=== PATIENT | male | born 1970 | race Caucasian/White ===

== ENCOUNTER 2020-12-28 19:52 | Emergency (ER) | payer BC, OTHER ==
[2020-12-28 21:10] LABS: Absolute Lymphocytes (CBC) 2.5 K/uL (0.7-4.9); Basophils % 0.6 % (0-1.3); Lymphocytes % 30.8 % (15.3-44.8); MPV 7.8 fL (7.6-11.3); RBC Red Blood Cell Count 4.58 M/uL (4.33-5.43)
[2020-12-28] MEDS ORDERED: NA CHLORIDE 0.9% 1,000 ML ONE (21:22)
[2020-12-28 21:24] LABS: Magnesium 2.2 mg/dL (1.8-2.4); Potassium 3.8 mmol/L (3.5-5.1)
--- NOTE | 2020-12-28 21:40 | RAD REPORT ---
EXAM DESCRIPTION: CT - Head Brain Wo Cont - 12/28/2020 9:28 pm CLINICAL HISTORY: DIZZINESS Headache, drowsiness COMPARISON: No comparisons TECHNIQUE: All CT scans are performed using dose optimization technique as appropriate and may inclu de automated exposure control or mA/KV adjustment according to patient size. FINDINGS: No intracranial hemorrhage, hydrocephalus or extra-axial fluid collection.No areas of brai n edema or evidence of midline shift. The paranasal sinuses and mastoids are clear. The calvarium is intact. IMPRESSION: No acute intracranial abnormality.
--- NOTE | 2020-12-28 22:31 | ER ---
Nurse's Notes [facility] Name: Laurent Duffy Age: 50 yrs Sex: Male : 1970 Arrival Date: 12/28/2020 Time: 19:56 Bed 17 Private MD: Diagnosis: Headache;Dizziness and giddiness Presentation: 12/28 20:21 Chief complaint: Patient states: Pt states dizziness after work today and H/A. df1 Coronavirus screen: Vaccine status: Patient reports receiving the 2nd dose of the covid vaccine. Client reports previous positive COVID test result. Date of collection: January 2020. Ebola Screen: Patient negative for fever greater than or equal to 101.5 degrees Fahrenheit, and additional compatible Ebola Virus Disease symptoms Patient denies exposure to infectious person. Patient denies travel to an Ebola-affected area in the 21 days before illness onset. Initial Sepsis Screen: Does the patient meet any 2 criteria? No. Patient's initial sepsis screen is negative. Does the patient have a suspected source of infection? No. Patient's initial sepsis screen is negative. Risk Assessment: Do you want to hurt yourself or someone else? Patient reports no desire to harm self or others. Onset of symptoms was December 28, 2020 at 16:00. 20:21 Method Of Arrival: Ambulatory df1 20:21 Acuity: ZACKARY 3 df1 20:25 Note Pt states h/a and dizziness at 1600 today. H/O afib and wanted to be evaluated. df1 Triage Assessment: 21:08 Headache History: The patient has had previous headaches and this one is similar to sj1 previous episodes. General: Appears in no apparent distress. Pain: Pain currently is 6 out of 10 on a pain scale. at worst was 10 out of 10 on a pain scale. Pain began gradually, Also complains of. Historical: - Allergies: 20:23 No Known Allergies; df1 - Home Meds: 20:23 Xarelto Oral once daily [Active]; losartan po daily [Active]; metoprolol po daily df1 [Active]; - PMHx: 20:23 Atrial Fib; Hypertension; df1 - PSHx: 20:23 cardiac ablation; df1 - Immunization history:: Adult Immunizations up to date, Client reports receiving the 2nd dose of the Covid vaccine. - Social history:: Smoking status: Patient denies any tobacco usage or history of. - Family history:: not pertinent. - Hospitalizations: : No recent hospitalization is reported. Screenin:07 Abuse screen: Denies threats or abuse. Denies injuries from another. Nutritional sj1 screening: No deficits noted. Tuberculosis screening: No symptoms or risk factors identified. Fall Risk None identified. Assessment: 20:32 General: Appears in no apparent distress. Behavior is calm, cooperative, appropriate sj1 for age. Pain: Complains of pain in headache Pain does not radiate. Neuro: Reports dizziness, headache. 21:07 Neuro:. Cardiovascular: No deficits noted. Rhythm is sinus rhythm. Respiratory: No sj1 deficits noted. GI: No deficits noted. : No deficits noted. EENT: No deficits noted. Derm: No deficits noted. Musculoskeletal: No deficits noted. Vital Signs: 20:21 BP 130 / 76; Pulse 94; Resp 20; Temp 98.5; Pulse Ox 98% on R/A; Weight 229.97 kg; df1 Height 6 ft. 1 in. (185.42 cm); Pain 6/10; 20:58 BP 136 / 91 RA Supine (auto/lg); Pulse 93; sj1 21:04 BP 137 / 82 RA Sitting (auto/lg); Pulse 94; sj1 21:04 BP 118 / 67 RA Standing (auto/lg); Pulse 105; sj1 22:38 BP 120 / 72; Pulse 92; Resp 18 S; Temp 98.6; Pulse Ox 95% on R/A; Pain 0/10; sj1 20:21 Body Mass Index 66.89 (229.97 kg, 185.42 cm) df1 Combes Coma Score: 22:23 Eye Response: spontaneous(4). Verbal Response: oriented(5). Motor Response: obeys rn commands(6). Total: 15. ED Course: 19:56 Patient arrived in ED. wm 20:23 Triage completed. df1 20:31 Ag Davis MD is Attending Physician. rn 20:54 Magnesium Sent. sj1 20:54 CT Head Brain wo Cont Sent. sj1 21:07 No provider procedures requiring assistance completed. Inserted saline lock: 18 gauge sj1 in right antecubital area, using aseptic technique. Blood collected. 21:07 Patient has correct armband on for positive identification. Bed in low position. Call sj1 light in reach. Side rails up X 1. 21:08 Arm band placed on right wrist. sj1 21:28 CT Head Brain wo Cont In Process Unspecified. EDMS 22:38 IV discontinued, intact, bleeding controlled, No redness/swelling at site. sj1 Administered Medications: 20:57 Drug: NS 0.9% 1000 ml Route: IV; Rate: 1000 ml; Site: right antecubital; sj1 22:37 Follow up: IV Status: Completed infusion; IV Intake: 1000ml sj1 Intake: 22:37 IV: 1000ml; Total: 1000ml. sj1 Outcome: 22:30 Discharge ordered by . rn 22:37 Discharged to home ambulatory. sj1 22:37 Condition: stable 22:37 Discharge instructions given to patient, Instructed on discharge instructions, follow up and referral plans. Demonstrated understanding of instructions, follow-up care. 22:39 Patient left the ED. sj1 Signatures: Dispatcher [employer] EDMS Ag Davis MD MD rn Marsh, Wendy wm Furlich, Dawn df1 Hannah Mancera RN RN sj1
--- NOTE | 2020-12-28 22:31 | EDPHYS ---
Physician Documentation [facility] Name: Laurent Duffy Age: 50 yrs Sex: Male : 1970 Arrival Date: 12/28/2020 Time: 19:56 Bed 17 Private MD: ED Physician Ag Davis HPI: 12/28 22:23 This 50 yrs old Male presents to ER via Ambulatory with complaints of rn Headache - MAKES HIM DIZZY. 22:23 The patient complains of pain to the top of head and forehead. The patient describes rn the headache as aching. Onset: The symptoms/episode began/occurred today. Associated signs and symptoms: Pertinent positives: dizziness, Pertinent negatives: fever, nausea, neck stiffness, paresthesias, rash, vision changes, vision loss, vomiting, weakness, vertigo. Severity of symptoms: At its worst the pain was very mild, in the emergency department the pain is unchanged. Headache History: Denies prior headaches. The symptoms are alleviated by nothing. the symptoms are aggravated by Changing position. The patient has not experienced similar symptoms in the past. The patient has not recently seen a physician. 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 Patient denies any head injury. No other focal neurological symptoms. Denies any chest pain/vomiting/diarrhea. Denies abdominal pain. Reports history of A. fib status post ablation and has had no issues since then. Came in to make sure he was not in A. fib again. Denies any medication changes. No blood in stool.. Historical: - Allergies: 20:23 No Known Allergies; df1 - Home Meds: 20:23 Xarelto Oral once daily [Active]; losartan po daily [Active]; metoprolol po daily df1 [Active]; - PMHx: 20:23 Atrial Fib; Hypertension; df1 - PSHx: 20:23 cardiac ablation; df1 - Immunization history:: Adult Immunizations up to date, Client reports receiving the 2nd dose of the Covid vaccine. - Social history:: Smoking status: Patient denies any tobacco usage or history of. - Family history:: not pertinent. - Hospitalizations: : No recent hospitalization is reported. ROS: 22:23 Constitutional: Negative for fever, chills, and weight loss, Eyes: Negative for injury, rn pain, redness, and discharge, ENT: Negative for injury, pain, and discharge, Neck: Negative for injury, pain, and swelling, Cardiovascular: Negative for chest pain, palpitations, and edema, Respiratory: Negative for shortness of breath, cough, wheezing, and pleuritic chest pain, Abdomen/GI: Negative for abdominal pain, nausea, vomiting, diarrhea, and constipation, Back: Negative for injury and pain, : Negative for injury, bleeding, discharge, and swelling, MS/Extremity: Negative for injury and deformity, Skin: Negative for injury, rash, and discoloration, Neuro: Negative for weakness, numbness, tingling, and seizure. Exam: 22:23 Constitutional: Overweight male, sitting up on edge of bed, no acute distress rn Head/Face: Normocephalic, atraumatic. Eyes: Pupils equal round and reactive to light, extra-ocular motions intact. Lids and lashes normal. Conjunctiva and sclera are non-icteric and not injected. Cornea within normal limits. Periorbital areas with no swelling, redness, or edema. ENT: Dry mucous membranes Cardiovascular: Regular rate and rhythm. No pulse deficits. Respiratory: No increased work of breathing, no retractions or nasal flaring. Skin: Warm, dry MS/ Extremity: Pulses equal, no cyanosis. Neurovascular intact. Full, normal range of motion. Equal circumference. Neuro: Awake and alert, GCS 15, oriented to person, place, time, and situation. Cranial nerves II-XII grossly intact. Motor strength 5/5 in all extremities. Sensory grossly intact. Cerebellar exam normal. Normal gait. 22:23 ECG was reviewed by the Attending Physician. rn Vital Signs: 20:21 BP 130 / 76; Pulse 94; Resp 20; Temp 98.5; Pulse Ox 98% on R/A; Weight 229.97 kg; df1 Height 6 ft. 1 in. (185.42 cm); Pain 6/10; 20:58 BP 136 / 91 RA Supine (auto/lg); Pulse 93; sj1 21:04 BP 137 / 82 RA Sitting (auto/lg); Pulse 94; sj1 21:04 BP 118 / 67 RA Standing (auto/lg); Pulse 105; sj1 22:38 BP 120 / 72; Pulse 92; Resp 18 S; Temp 98.6; Pulse Ox 95% on R/A; Pain 0/10; sj1 20:21 Body Mass Index 66.89 (229.97 kg, 185.42 cm) df1 Lucho Coma Score: 22:23 Eye Response: spontaneous(4). Verbal Response: oriented(5). Motor Response: obeys rn commands(6). Total: 15. MDM: 20:31 Patient medically screened. rn 22:23 Differential diagnosis: hypertensive headache, migraine, tension headache, vasomotor rn headache, Dehydration, anemia, atrial fibrillation, arrhythmia. Data reviewed: vital signs, nurses notes, lab test result(s), EKG, radiologic studies, CT scan, and as a result, I will discharge patient. Data interpreted: monitoring specialist: rate is 90 beats/min, rhythm is normal sinus rhythm, regular, with no ectopy, Interpretation: normal rate, normal rhythm, Pulse oximetry: on room air is 98 %. Interpretation: normal. Counseling: I had a detailed discussion with the patient and/or guardian regarding: the historical points, exam findings, and any diagnostic results supporting the discharge/admit diagnosis, lab results, radiology results, the need for outpatient follow up, to return to the emergency department if symptoms worsen or persist or if there are any questions or concerns that arise at home. Response to treatment: the patient's symptoms have mildly improved after treatment, and as a result, I will discharge patient. Special discussion: I discussed with the patient/guardian in detail that at this point there is no indication for admission to the hospital. It is understood, however, that if the symptoms persist or worsen the patient needs to return immediately for re-evaluation. 12/28 20:41 Order name: CBC with Diff; Complete Time: :32 rn 12/28 20:41 Order name: Basic Metabolic Panel; Complete Time: : rn 12/28 20:41 Order name: CT Head Brain wo Cont; Complete Time: 22:12 rn 12/28 20:41 Order name: EKG; Complete Time: 20:41 rn 12/28 20:41 Order name: Magnesium; Complete Time: :32 rn 12/28 20:41 Order name: IV Start; Complete Time: 20:54 rn 12/28 20:41 Order name: EKG - Nurse/Tech; Complete Time: 20:54 rn 12/28 20:41 Order name: Orthostatic Blood Pressure; Complete Time: 21:09 rn 12/28 20:41 Order name: Cardiac monitoring; Complete Time: 54 rn 12/28 20:41 Order name: O2 Sat Monitoring; Complete Time: : rn EC:23 Rate is 91 beats/min. Rhythm is regular. QRS [place] is Normal. MT interval is normal. QRS rn interval is normal. QT interval is normal. No Q waves. T waves are Normal. No ST changes noted. Clinical impression: NSR w/ Non-specific ST/T Changes. Interpreted by me. Reviewed by me. Administered Medications: 20:57 Drug: NS 0.9% 1000 ml Route: IV; Rate: 1000 ml; Site: right antecubital; sj1 22:37 Follow up: IV Status: Completed infusion; IV Intake: 1000ml [facility] Disposition Summary: 12/28/20 22:30 Discharge Ordered Location: Home rn Problem: new rn Symptoms: have improved rn Condition: Stable rn Diagnosis - Headache rn - Dizziness and giddiness rn Followup: rn - With: Private Physician - When: As needed - Reason: Recheck today's complaints, Re-evaluation by your physician Discharge Instructions: - Discharge Summary Sheet rn - Dizziness rn - General Headache Without Cause rn Forms: - Medication Reconciliation Form rn - Thank You Letter rn - Antibiotic care nurse rn - Prescription Opioid Use rn Signatures: Dispatcher [employer] Ag Carlos MD MD rn Furlich, Dawn df1 Hannah Mancera RN RN sj1
[2020-12-28 22:48] VITALS: BP 120/72; TEMP 98.6; O2SAT 95
== END 2020-12-28 22:39 | disposition home or self-care (01) ==
LOC: ER 19:52
DX: R51.9 Headache, unspecified (principal); I10 Essential (primary) hypertension; I48.91 Unspecified atrial fibrillation; Z79.01 Long term (current) use of anticoagulants
CPT/HCPCS: 96361; 93005; 85025; 80048; 36415; 83735; 70450; 96360; 99284; J7030

== ENCOUNTER 2021-03-24 06:23 | Day surgery (SDC) | payer BC ==
--- NOTE | 2021-03-22 15:24 | RAD REPORT ---
EXAM DESCRIPTION: Lia Andrade And Lat (2 Views)03/22/2021 3:18 pm CLINICAL HISTORY: Preop for chest wall mass. Hypertension COMPARISON: 2017 FINDINGS: The lungs appear clear of acute infiltrate. The heart is normal size IMPRESSION: No acute abnormalities displayed
[2021-03-22 16:02] LABS: Absolute Lymphocytes (CBC) 2.1 K/uL (0.7-4.9); Hematocrit 39.1 % (39.6-49.0); Lymphocytes % 27.2 % (15.3-44.8); MPV 7.9 fL (7.6-11.3); RBC Red Blood Cell Count 4.55 M/uL (4.33-5.43)
[2021-03-22 18:47] LABS: SARS-COV-2 RT PCR NEGATIVE (NEGATIVE)
[2021-03-24] MEDS ORDERED: Ringers Lactate 1,000 ML IV ONE (06:56)
[2021-03-24] MEDS ORDERED: CEFAZOLIN/NS 1gm 1 GM/50 ML BAG ONE (06:56)
[2021-03-24] MEDS ORDERED: propofoL 200 MG/20 ML VIAL IV ONE (07:13)
[2021-03-24] MEDS ORDERED: FENTANYL CITR 100 MCG/2 ML ONE (07:14)
[2021-03-24] MEDS ORDERED: MIDAZOLAM HCL 2 MG/2 ML INJ ONE (07:14)
[2021-03-24] MEDS ORDERED: ONDANSETRON 4 MG/2 ML VIAL ONE (07:15)
[2021-03-24] MEDS ORDERED: LIDOCAINE 2% MPF 5 ML VIAL ONE (07:16)
[2021-03-24] MEDS ORDERED: BUPIVACAINE 0.5% PF 10 ML VIAL ONE (07:22)
[2021-03-24] MEDS ORDERED: HYDROCODONE/APAP 7.5/325 MG TAB ONE (08:54)
[2021-03-24] MEDS ORDERED: HYDROCODONE/APAP 7.5/325 MG TAB PO ONE (09:00)
--- NOTE | 2021-03-24 09:48 | OP ---
Date of Procedure: 03/24/2021 Surgeon: Mike Flor MD Preoperative Diagnosis: Chest wall mass. Postoperative Diagnosis: Chest wall mass. Procedure: Wide excision, chest wall mass 5 x 2 cm with layered closure. Estimated Blood Loss: Minimal. Specimens: Chest wall mass. Findings: On frozen section, no evidence of malignancy. Anesthesia: MAC. Complications: None. The patient tolerated procedure in stable condition and taken to Recovery in g ood general condition. Procedure In Detail: The patient was brought to the OR and placed in supine position. MAC anesthesi a was begun. The patient was prepped and draped in usual sterile fashion. Marcaine 0.5% was infiltr ated locally. A 15-blade was used to make a 5 x 2 cm incision to excise this 1.75 cm raised red infl lela appearing mass with normal skin margins labeled appropriately down to the deep subcutaneous tiss ue and then sent to Pathology for frozen section. It revealed there was no evidence of carcinoma pre sent. Subsequently wound irrigated bleeding controlled with cautery. Flaps created and then 2-0 chr omic used to approximate the subcutaneous tissues and 3-0 nylon used to close the skin. Sterile dres sing applied. Patient was awakened and taken to Recovery in good general condition. Discharge Note: The patient will go to Day Surgery and home when stable. Disposition: Home. Condition: Stable. Discharge Instructions: Resume home medications and diet. Activity as tolerated. No heavy lifting. Remove outer dressing in 2 days. Shower. Keep wound clean and dry. Follow up in my office in 2 w eeks. Call for appointment. Tylenol No. 3 one tablet p.o. q.4 hours p.r.n. pain, Cipro 500 mg p.o. q.12. /MODL Voice ID: [id number] Report ID: [id number]
[2021-03-24 10:06] VITALS: BP 124/49; TEMP 97.5; O2SAT 99
== END 2021-03-24 09:30 | disposition home or self-care (01) ==
LOC: OR 06:23
PROVIDERS: ATTEND Surgery
PROC: 0JB70ZZ Excision of Back Subcutaneous Tissue and Fascia, Open Approach (ICD-10-PCS; principal; 2021-03-24 07:30)
DX: R22.2 Localized swelling, mass and lump, trunk (principal); Z20.822 Contact with and (suspected) exposure to COVID-19
CPT/HCPCS: 93005; 85025; 80048; 36415; 88331; 88332; 88305; 0241U; 71046; 11406; J2704; J2250; J3010; J0690; J7120; J2405; 88304

== ENCOUNTER 2022-11-02 06:15 | Day surgery (SDC) | payer BC ==
[2022-11-01 16:10] LABS: Hematocrit 44.9 % (39.6-49.0); Lymphocytes % 23.6 % (15.3-44.8); MPV 7.8 fL (7.6-11.3); Platelets 283 thou/uL (152-406); RBC Red Blood Cell Count 5.04 M/uL (4.33-5.43)
--- NOTE | 2022-11-01 16:13 | RAD REPORT ---
EXAM DESCRIPTION: RAD - Chest Pa And Lat (2 Views) - 11/01/2022 3:59 pm CLINICAL HISTORY: pre op for surgery COMPARISON: <Comparisons> FINDINGS: Lines: None. Lungs: No evidence of edema or pneumonia. Pleural: No significant pleural effusions or pneumothorax. Cardiac: The heart size is within normal limits. Mediastinum: Within normal limits. Bones: No acute fractures. Other: None IMPRESSION: No acute cardiopulmonary disease.
[2022-11-01 16:25] LABS: Potassium 4.2 mEq/L (3.5-5.1)
[2022-11-02] MEDS ORDERED: CEFOXITIN SODIUM 1 GM/VIAL ONE (06:42)
[2022-11-02] MEDS ORDERED: Ringers Lactate 1,000 ML IV ONE (06:42)
[2022-11-02] MEDS ORDERED: propofoL 200 MG/20 ML VIAL IV ONE (07:21)
[2022-11-02] MEDS ORDERED: BUPIVACAINE 0.5% PF 10 ML VIAL ONE (07:21)
[2022-11-02] MEDS ORDERED: MIDAZOLAM HCL 2 MG/2 ML INJ ONE (07:22)
[2022-11-02] MEDS ORDERED: FENTANYL CITR 100 MCG/2 ML ONE (07:22)
[2022-11-02] MEDS ORDERED: LIDOCAINE 2% MPF 5 ML VIAL ONE (07:22)
[2022-11-02] MEDS ORDERED: ONDANSETRON 4 MG/2 ML VIAL ONE (07:23)
[2022-11-02] MEDS ORDERED: dexAMETHasone 10 MG/ML VIAL ONE (07:57)
[2022-11-02] MEDS ORDERED: KETOROLAC 30 MG/ML INJ ONE (08:15)
--- NOTE | 2022-11-02 08:22 | P.OP ---
Date of Service: 11/02/22 Preop diagnosis: Left lateral thrombosed hemorrhoid Postop diagnosis: Left lateral thrombosed hemorrhoid x2 Procedure performed: Exam under anesthesia, rigid proctoscopy and incision and drainage of left lateral thrombosed hemorrhoid x2 Surgeon: Mike Flor MD [employer] Supervisor: None Estimated blood loss: Minimal Specimen: Clot Findings: As above Anesthesia: General Complications: None Drains: None Fluids and blood products: None applicable Disposition: Recovery room Operative note: Patient brought to the OR and placed in the supine position. General anesthesia begun. Patient placed in the lithotomy position. Patient prepped and draped in the usual sterile fashion. Exam under anesthesia revealed a lateral left-sided thrombosed hemorrhoid approximately 3 cm in diameter and a smaller 1 next to it. Proctoscopy did not reveal any other evidence of disease. Marcaine 0.5% infiltrated locally. 15 blade used to make a 2.5 cm incision over the large thrombosed hemorrhoid. An 8.5 cm incision over the smaller thrombosed hemorrhoid. Clots evacuated. Bleeding controlled cautery. Sterile dressing applied. Patient awakened and taken to recovery room in good general condition. CC:
[2022-11-02] MEDS ORDERED: HYDROCODONE/APAP 7.5/325 MG TAB PO PRN (08:24)
[2022-11-02] MEDS ORDERED: HYDROCODONE/APAP 7.5/325 MG TAB ONE (09:26)
[2022-11-02 10:38] VITALS: BP 107/71; TEMP 97.6; O2SAT 96
--- NOTE | 2022-11-02 13:57 | EKG ---
Test Date: 2022-11-01 Test Time: 15:47:48 Member Of Congress: ELIU MEASUREMENT RESULTS: Intervals: Rate: 74 TN: 140 QRSD: 90 QT: 326 QTc: 361 [place]: P: 53 TN: 140 QRS: 82 T: -7 INTERPRETIVE STATEMENTS: Normal sinus rhythm T wave abnormality, consider inferior ischemia Abnormal ECG Compared to ECG 03/22/2021 14:59:08 T-wave abnormality now present Possible ischemia now present Electronically Signed On 11-02-22 13:56:06 CDT by Rajeev Laird
== END 2022-11-02 09:38 | disposition home or self-care (01) ==
LOC: OR 06:15
PROVIDERS: ATTEND Surgery
PROC: 0DJD8ZZ Inspection of Lower Intestinal Tract, Via Natural or Artificial Opening Endoscopic (ICD-10-PCS; 2022-11-02)
PROC: 06BY4ZC Excision of Hemorrhoidal Plexus, Percutaneous Endoscopic Approach (ICD-10-PCS; principal; 2022-11-02 07:30)
DX: K64.5 Perianal venous thrombosis (principal)
CPT/HCPCS: 36415; 71046; 80048; 85025; 88304; 93005; J0694; J1100; J2001; J2250; J2405; J2704; J3010; J7120

== ENCOUNTER 2022-12-13 19:54 | Inpatient (IN) | payer BC ==
--- OUTSIDE RECORDS SUMMARY | 2022-12-13 19:59 | XMS REPORT | Continuity of Care Document ---
:1970 Author Organization [facility] t Address [address] [place] [address]. [address] [place] [address] Care Team Providers Name Role Phone Mihir Romero MD Primary Care Physician [phone] Star Mario Attending Clinician Unavailable PIERRE LOYD Attending Clinician Unavailable Pierre Gaines S Attending Clinician Sera Ordoñez RN Attending Clinician Unavailable HELENA GIPSON Attending Clinician Unavailable CHILANGO CHILDS Attending Clinician Unavailable Chilango Childs MD Attending Clinician Unknown, Attending Attending Clinician Unavailable Doctor Unassigned, Felt Attending Clinician Unavailable Adriana Farfan Attending Clinician Unavailable Only, Bassem Miller Test Attending Clinician Unavailable Opal Tomlinson Attending Clinician OPAL HERRING Attending Clinician Unavailable Provider, [facility] Attending Clinician Unavailable Nurse, [facility] Attending Clinician Unavailable Armin Diamond Attending Clinician Andre FELIZ Attending Clinician Unavailable Andre Bell Attending Clinician Provider, [facility] Attending Clinician Unavailable Lab, Ad[facility] F[facility] Pob I Attending Clinician Unavailable Cathleen Cifuentes Attending Clinician PIERRE LOYD Admitting Clinician Unavailable HELENA GIPSON Admitting Clinician Unavailable Adriana Farfan Admitting Clinician Unavailable Andre FELIZ Admitting Clinician Unavailable Payers Payer Name Policy Type Policy Number Effective Date Expiration Date S ource [place] [id number] 2022 - OUT OF 00:00:00 [facility] CIGNA II [id number] 2019 00:00:00 CIGNA C1 [id number] 2017 [facility] 00:[facility]:00 - [facility] Problems Condition Condition Condition Status Onset Resolution Last Treating Co mments Source Name Details Category Date Date Treatment Clinician Date COVID-19 COVID-19 Disease Active Metho di virus virus 8-07 st detected detected 00:00: Hospit a 00 l Rapid Rapid Disease Active [facility] atrial atrial 8-06 st fibrillati fibrillati 00:00: Ho spita on on 00 l PAF PAF Disease Active 2016-03 [facility] (paroxysma (paroxysma 0-27 st l atrial l atrial 00:00: Hospit a fibrillati fibrillati 00 l on) on) Cardiac Cardiac Disease Active 2016-03 [facility] dysrhythmi dysrhythmi 0-13 st a a 00:00: Hospita 00 l Atrial Atrial Disease Active 2016-03 [facility] fibrillati fibrillati 0-12 st on with on with 00:00: Hospita RVR RVR 00 l [id number] Hypertensi Problem Active Co mmon on due to [facility] endocrine - [facility] disorder [facility] [id number] Allergic Problem Active Commo n rhinitis, [facility] unspecifie - [facility] d [facility] unspec[facility] d trigger No known No known Disease Unive rs active active ity of problems problems [facility] Allergies, Adverse Reactions, Alerts Allergy Allergy Status Severity Reaction(s) Onset Inactive Treating Comm ents Source Name Type Date Date Clinician No Known DA Active U [facility]ie 3[facility]10 [facility] No Known DA Active [facility] Allergie 3-03 Clear s 00:00: [facility] NO KNOWN Drug Active Univers ALLERGIE Class ity of S [facility] Family History Family Member Diagnosis Comments Start Date Stop Date Source [facility] Maternal uncle Heart failure [facility] Social History Social Habit Start Date Stop Date Quantity Comments Source History of Tobacco Never Smoker Comm on [facility] - Use [facility] Gender identity [facility] Sexual orientation [facility] Exposure to 2022-05-31 2022-06-10 Not sure University SARS-CoV-2 (event) 00:00:00 12:59:00 [facility] Alcohol intake 2020-03-17 2020-03-17 Lifetime Religion 00:00:00 00:00:00 non-drinker Hospital (finding) History of Social 2020-03-17 2020-03-[address] function 00:00:00 00:00:00 Hospital Tobacco use and 2020-03-14 2020-03-14 Smokeless Religion exposure 00:00:00 00:00:00 tobacco non-user Hospital Sex Assigned At [birth year] [facility] 00:[facility]:00 Hospital Smoking Status Start Date Stop Date Source Unknown if ever smoked [facility] Never Smoker [facility] Medications Ordered Filled Start Stop Current Ordering Indication Dosage Frequency Signature Comments Components Source Medication Medication Date Date Medication? Clinician (SIG) Name Name iopamidol 2022- No [id number] 100mL 100 mL, Univers (ISOVUE 09-29 07-15 Intravenou ity o f 370-500 mL) 22:30: 22:30 s, ONCE, 1 [place] injection 00 :00 dose, On Medica l 100 mL Sat Branch 09/29/22 at 1730, Routine fluticasone 2022- No 2{spray Use 2 U nivers propionate 3-26 06-10 } Sprays in ity of 50 13:15: 00:00 each [place] mcg/actuati 30 :00 nostril. Medi cony on nasal Branch spray nirmatrelvi Yes [id number] 3{tbl} Take 3 Univers r-ritonavir 3-26 tablets by it y of (PAXLOVID, 00:00: mouth in [place] as EUA,) 300 00 the Medical mg (150 mg morning Branch x 2)-100 mg and 3 tablet tablets in the evening. benzonatate 2022-0 Yes [id number] 200mg Take 2 Univers 100 mg 3-26 capsules ity of capsule 00:00: by mouth [place] 00 every 8 Medical (eight) Branch hours as needed for Cough. nirmatrelvi 2022-0 Yes [id number] 3{tbl} Take 3 Univers r-ritonavir 3-26 tablets by it y of (PAXLOVID, 00:00: mouth in [place] as EUA,) 300 00 the Medical mg (150 mg morning Branch x 2)-100 mg and 3 tablet tablets in the evening. benzonatate 2022-0 Yes [id number] 200mg Take 2 Univers 100 mg 3-26 capsules ity of capsule 00:00: by mouth [place] 00 every 8 Medical (eight) Branch hours as needed for Cough. nirmatrelvi 2022-0 Yes [id number] 3{tbl} Take 3 Univers r-ritonavir 3-26 tablets by it y of (PAXLOVID, 00:00: mouth in [place] as EUA,) 300 00 the Medical mg (150 mg morning Branch x 2)-100 mg and 3 tablet tablets in the evening. benzonatate 2022-0 Yes [id number] 200mg Take 2 Univers 100 mg 3-26 capsules ity of capsule 00:00: by mouth [place] 00 every 8 Medical (eight) Branch hours as needed for Cough. nirmatrelvi 2022-0 Yes [id number] 3{tbl} Take 3 Univers r-ritonavir 3-26 tablets by it y of (PAXLOVID, 00:00: mouth in [place] as EUA,) 300 00 the Medical mg (150 mg morning Branch x 2)-100 mg and 3 tablet tablets in the evening. benzonatate 2022-0 Yes [id number] 200mg Take 2 Univers 100 mg 3-26 capsules ity of capsule 00:00: by mouth [place] 00 every 8 Medical (eight) Branch hours as needed for Cough. vitamin e 2020-03 Yes 400U Take 400 Univ ers 400 unit 0-13 Units by ity of capsule 19:20: mouth. [place] 46 Medical Branch zinc 2020-03 Yes 220mg Take 220 Univers sulfate 220 0-13 mg by ity of (50) mg 19:20: mouth. [place] capsule 46 Medical Branch ascorbic 2020-03 Yes 500mg Take 500 Univ ers acid, 0-13 mg by ity of vitamin C, 19:20: mouth. [place] 500 mg 46 Medical tablet Branch fluticasone 2020-03 Yes 2{spray Use 2 Un andrew propionate 0-13 } Sprays in ity of 50 19:20: each [place] mcg/actuati 46 nostril. Medi cony on nasal Branch spray vitamin e 2020-03 Yes 400U Take 400 Univ ers 400 unit 0-13 Units by ity of capsule 19:20: mouth. [place] [address] Medical Branch zinc 2020-03 Yes 220mg Take 220 Univers sulfate 220 0-13 mg by ity of (50) mg 19:20: mouth. [place] capsule Medical Branch ascorbic 2020-03 Yes 500mg Take 500 Univ ers acid, 0-13 mg by ity of vitamin C, 19:20: mouth. [place] 500 mg 46 Medical tablet Branch fluticasone 2020-03 Yes 2{spray Use 2 Un andrew propionate 0-13 } Sprays in ity of 50 19:20: each [place] mcg/actuati 46 nostril. Medi cony on nasal Branch spray vitamin e 2020-03 Yes 400U Take 400 Univ ers 400 unit 0-13 Units by ity of capsule 19:20: mouth. [place] [address] Medical Branch zinc 2020-03 Yes 220mg Take 220 Univers sulfate 220 0-13 mg by ity of (50) mg 19:20: mouth. [place] capsule Medical Branch ascorbic 2020-03 Yes 500mg Take 500 Univ ers acid, 0-13 mg by ity of vitamin C, 19:20: mouth. [place] 500 mg 46 Medical tablet Branch fluticasone 2020-03 Yes 2{spray Use 2 Un andrew propionate 0-13 } Sprays in ity of 50 19:20: each [place] mcg/actuati 46 nostril. Medi cony on nasal Branch spray vitamin e 2020-03 Yes 400U Take 400 Univ ers 400 unit 0-13 Units by ity of capsule 19:20: mouth. [place] [address] Medical Branch zinc 2020-03 Yes 220mg Take 220 Univers sulfate 220 0-13 mg by ity of (50) mg 19:20: mouth. [place] capsule 46 Medical Branch ascorbic 2020-03 Yes 500mg Take 500 Univ ers acid, 0-13 mg by ity of vitamin C, 19:20: mouth. [place] 500 mg 46 Medical tablet Branch fluticasone 2020-03 Yes 2{spray Use 2 Un andrew propionate 0-13 } Sprays in ity of 50 19:20: each [place] mcg/actuati 46 nostril. Medi cony on nasal Branch spray vitamin e 2020-03 Yes 400U Take 400 Univ ers 400 unit 0-13 Units by ity of capsule 19:20: mouth. [place] [address] Medical Branch zinc 2020-03 Yes 220mg Take 220 Univers sulfate 220 0-13 mg by ity of (50) mg 19:20: mouth. [facility] 46 Medical Branch ascorbic 2020-03 Yes 500mg Take 500 Univ ers acid, 0-13 mg by ity of vitamin C, 19:20: mouth. [place] 500 mg 46 Medical tablet Branch vitamin e 2020-03 Yes 400U Take 400 Univ ers 400 unit 0-13 Units by ity of capsule 19:20: mouth. [place] [address] Medical Branch zinc 2020-03 Yes 220mg Take 220 Univers sulfate 220 0-13 mg by ity of (50) mg 19:20: mouth. [facility] 46 Medical Branch ascorbic 2020-03 Yes 500mg Take 500 Univ ers acid, 0-13 mg by ity of vitamin C, 19:20: mouth. [place] 500 mg 46 Medical tablet Branch vitamin e 2020-03 Yes 400U Take 400 Univ ers 400 unit 0-13 Units by ity of capsule 19:20: mouth. [place] [address] Medical Branch zinc 2020-03 Yes 220mg Take 220 Univers sulfate 220 0-13 mg by ity of (50) mg 19:20: mouth. [place] capsule 46 Medical Branch ascorbic 2020-03 Yes 500mg Take 500 Univ ers acid, 0-13 mg by ity of vitamin C, 19:20: mouth. [place] 500 mg 46 Medical tablet Branch vitamin e 2020-03 Yes 400U Take 400 Univ ers 400 unit 0-13 Units by ity of capsule 19:20: mouth. [place] [address] Medical Branch zinc 2020-03 Yes 220mg Take 220 Univers sulfate 220 0-13 mg by ity of (50) mg 19:20: mouth. [place] [address] Medical Branch ascorbic 2020-03 Yes 500mg Take 500 Univ ers acid, 0-13 mg by ity of vitamin C, 19:20: mouth. [place] 500 mg 46 Medical tablet Branch vitamin e 2020-03 Yes 400U Take 400 Univ ers 400 unit 0-13 Units by ity of capsule 19:20: mouth. [place] [address] Medical Branch zinc 2020-03 Yes 220mg Take 220 Univers sulfate 220 0-13 mg by ity of (50) mg 19:20: mouth. [place] capsule 46 Medical Branch ascorbic 2020-03 Yes 500mg Take 500 Univ ers acid, 0-13 mg by ity of vitamin C, 19:20: mouth. [place] 500 mg 46 Medical tablet Branch vitamin e 2020-03 Yes 400U Take 400 Univ ers 400 unit 0-13 Units by ity of capsule 19:20: mouth. [address] Branch zinc 2020-03 Yes 220mg Take 220 Univers sulfate 220 0-13 mg by ity of (50) mg 19:20: mouth. [facility] 46 Medical Branch ascorbic 2020-03 Yes 500mg Take 500 Univ ers acid, 0-13 mg by ity of vitamin C, 19:20: mouth. [place] 500 mg 46 Medical tablet Branch fluticasone 2020-03 Yes 2{spray Use 2 Un andrew propionate 0-13 } Sprays in ity of 50 19:20: each [place] mcg/actuati 46 nostril. Medi cony on nasal Branch spray losartan 50 2020-03 Yes 50mg Take 50 mg Univers mg tablet 0-13 by mouth. ity o f 19:16: [address] losartan 50 2020-03 Yes 50mg Take 50 mg Univers mg tablet 0-13 by mouth. ity o f 19:16: [address] losartan 50 2020-03 Yes 50mg Take 50 mg Univers mg tablet 0-13 by mouth. ity o f 19:16: [address] losartan 50 2020-03 Yes 50mg Take 50 mg Univers mg tablet 0-13 by mouth. ity o f 19:16: [address] losartan 50 2020-03 Yes 50mg Take 50 mg Univers mg tablet 0-13 by mouth. ity o f 19:16: [address] losartan 50 2020-03 Yes 50mg Take 50 mg Univers mg tablet 0-13 by mouth. ity o f 19:16: [address] losartan 50 2020-03 Yes 50mg Take 50 mg Univers mg tablet 0-13 by mouth. ity o f 19:16: [address] losartan 50 2020-03 Yes 50mg Take 50 mg Univers mg tablet 0-13 by mouth. ity o f 19:16: [address] losartan 50 2020-03 Yes 50mg Take 50 mg Univers mg tablet 0-13 by mouth. ity o f 19:16: [address] losartan 50 2020-03 Yes 50mg Take 50 mg Univers mg tablet 0-13 by mouth. ity o f 19:16: [address] ascorbic 2019-03 Yes 500mg Take 500 Univ ers acid, 2-27 mg by ity of vitamin C, 23:13: mouth. [place] 500 mg 55 Medical tablet Branch fluticasone 2019-03 Yes 2{spray Use 2 Un andrew propionate 2-27 } Sprays in ity of 50 23:13: each [place] mcg/actuati 55 nostril. Medi cony on nasal Branch spray losartan 50 2019-03 Yes 50mg Take 50 mg Univers mg tablet 2-27 by mouth. ity o f 23:13: [address] vitamin e 2019-03 Yes 400U Take 400 Univ ers 400 unit 2-27 Units by ity of capsule 23:13: mouth. [address] zinc 2019-03 Yes 220mg Take 220 Univers sulfate 220 2-27 mg by ity of (50) mg 23:13: mouth. [address] ascorbic 2019-03 Yes 500mg Take 500 Univ ers acid, 2-27 mg by ity of vitamin C, 23:13: mouth. [place] 500 mg 55 Medical tablet Branch fluticasone 2019-03 Yes 2{spray Use 2 Un andrew propionate 2-27 } Sprays in ity of 50 23:13: each [place] mcg/actuati 55 nostril. Medi cony on nasal Branch spray losartan 50 2019-03 Yes 50mg Take 50 mg Univers mg tablet 2-27 by mouth. ity o f 23:13: [address] vitamin e 2019- Yes 400U Take 400 Univ ers 400 unit 2-27 Units by ity of capsule 23:13: mouth. [address] zinc 2019- Yes 220mg Take 220 Univers sulfate 220 2-27 mg by ity of (50) mg 23:13: mouth. [address] Branch ascorbic 2019- Yes 500mg Take 500 Univ ers acid, 2-27 mg by ity of vitamin C, 23:13: mouth. [place] 500 mg 55 Medical tablet Branch fluticasone 2019-03 Yes 2{spray Use 2 Un andrew propionate 2-27 } Sprays in ity of 50 23:13: each [place] mcg/actuati 55 nostril. Medi cony on nasal Branch spray losartan 50 2019-03 Yes 50mg Take 50 mg Univers mg tablet 2-27 by mouth. ity o f 23:13: [address] vitamin e 2019-03 Yes 400U Take 400 Univ ers 400 unit 2-27 Units by ity of capsule 23:13: mouth. [address] zinc 2019- Yes 220mg Take 220 Univers sulfate 220 2-27 mg by ity of (50) mg 23:13: mouth. [address] ascorbic 2019-03 Yes 500mg Take 500 Univ ers acid, 2-27 mg by ity of vitamin C, 17:13: mouth. [place] 500 mg 55 Medical tablet Branch fluticasone 2019-03 Yes 2{spray Use 2 Un andrew propionate 2-27 } Sprays in ity of 50 17:13: each [place] mcg/actuati 55 nostril. Medi cony on nasal Branch spray losartan 50 2019-03 Yes 50mg Take 50 mg Univers mg tablet 2-27 by mouth. ity o f 17:13: [address] vitamin e 2019-03 Yes 400U Take 400 Univ ers 400 unit 2-27 Units by ity of capsule 17:13: mouth. [address] zinc 2019- Yes 220mg Take 220 Univers sulfate 220 2-27 mg by ity of (50) mg 17:13: mouth. [place] capsule Medical Branch naproxen 2019-03 Yes [id number] 500mg Take 1 U nivers (NAPROSYN) 2-27 tablet by ity of 500 mg 00:00: mouth 2 [place] tablet 00 (two) Medical times Branch daily with meals. naproxen 2019-03 Yes [id number] 500mg Take 1 U nivers (NAPROSYN) 2-27 tablet by ity of 500 mg 00:00: mouth 2 [place] tablet 00 (two) Medical times Branch daily with meals. naproxen 2019-03 Yes [id number] 500mg Take 1 U nivers (NAPROSYN) 2-27 tablet by ity of 500 mg 00:00: mouth 2 [place] tablet 00 (two) Medical times Branch daily with meals. naproxen 2019-03 Yes [id number] 500mg Take 1 U nivers (NAPROSYN) 2-27 tablet by ity of 500 mg 00:00: mouth 2 [place] tablet 00 (two) Medical times Branch daily with meals. naproxen 2019-03 Yes [id number] 500mg Take 1 U nivers (NAPROSYN) 2-27 tablet by ity of 500 mg 00:00: mouth 2 [place] tablet 00 (two) Medical times Branch daily with meals. naproxen 2019-03 Yes [id number] 500mg Take 1 U nivers (NAPROSYN) 2-27 tablet by ity of 500 mg 00:00: mouth 2 [place] tablet 00 (two) Medical times Branch daily with meals. naproxen 2019-03 Yes [id number] 500mg Take 1 U nivers (NAPROSYN) 2-27 tablet by ity of 500 mg 00:00: mouth 2 [place] tablet 00 (two) Medical times Branch daily with meals. naproxen 2019-03 Yes [id number] 500mg Take 1 U nivers (NAPROSYN) 2-27 tablet by ity of 500 mg 00:00: mouth 2 [place] tablet 00 (two) Medical times Branch daily with meals. naproxen 2019-03 Yes [id number] 500mg Take 1 U nivers (NAPROSYN) 2-27 tablet by ity of 500 mg 00:00: mouth 2 [place] tablet 00 (two) Medical times Branch daily with meals. naproxen 2019-03 Yes [id number] 500mg Take 1 U nivers (NAPROSYN) 2-27 tablet by ity of 500 mg 00:00: mouth 2 [place] tablet 00 (two) Medical times Branch daily with meals. naproxen 2019-03 Yes [id number] 500mg Take 1 U nivers (NAPROSYN) 2-27 tablet by ity of 500 mg 00:00: mouth 2 [place] tablet 00 (two) Medical times Branch daily with meals. naproxen 2019-03 Yes [id number] 500mg Take 1 U nivers (NAPROSYN) 2-27 tablet by ity of 500 mg 00:00: mouth 2 [place] tablet 00 (two) Medical times Branch daily with meals. metoprolol 2019-03 Yes 25mg Take 25 mg U nivers succinate 0-10 by mouth ity of XL 25 mg 24 00:00: every [place] hr tablet 00 morning. Medica l Branch XARELTO 20 2019-03 Yes 20mg Take 20 mg U nivers mg tablet 0-10 by mouth ity of 00:00: every [place] 00 morning. Medical Branch metoprolol 2019-03 Yes 25mg Take 25 mg U nivers succinate 0-10 by mouth ity of XL 25 mg 24 00:00: every [place] hr tablet 00 morning. Medica l Branch XARELTO 20 2019-03 Yes 20mg Take 20 mg U nivers mg tablet 0-10 by mouth ity of 00:00: every [place] 00 morning. Medical Branch metoprolol 2019-03 Yes 25mg Take 25 mg U nivers succinate 0-10 by mouth ity of XL 25 mg 24 00:00: every [place] hr tablet 00 morning. Medica l Branch XARELTO 20 2019-03 Yes 20mg Take 20 mg U nivers mg tablet 0-10 by mouth ity of 00:00: every [place] 00 morning. Medical Branch metoprolol 2019-03 Yes 25mg Take 25 mg U nivers succinate 0-10 by mouth ity of XL 25 mg 24 00:00: every [place] hr tablet 00 morning. Medica l Branch XARELTO 20 2019-03 Yes 20mg Take 20 mg U nivers mg tablet 0-10 by mouth ity of 00:00: every [place] 00 morning. Medical Branch metoprolol 2019-03 Yes 25mg Take 25 mg U nivers succinate 0-10 by mouth ity of XL 25 mg 24 00:00: every [place] hr tablet 00 morning. Medica l Branch XARELTO 20 2019-03 Yes 20mg Take 20 mg U nivers mg tablet 0-10 by mouth ity of 00:00: every [place] 00 morning. Medical Branch metoprolol 2019-03 Yes 25mg Take 25 mg U nivers succinate 0-10 by mouth ity of XL 25 mg 24 00:00: every [place] hr tablet 00 morning. Medica l Branch metoprolol 2019-03 Yes 25mg Take 25 mg U nivers succinate 0-10 by mouth ity of XL 25 mg 24 00:00: every [place] hr tablet 00 morning. Medica l Branch XARELTO 20 2019-03 Yes 20mg Take 20 mg U nivers mg tablet 0-10 by mouth ity of 00:00: every [place] 00 morning. Medical Branch metoprolol 2019-03 Yes 25mg Take 25 mg U nivers succinate 0-10 by mouth ity of XL 25 mg 24 00:00: every [place] hr tablet 00 morning. Medica l Branch metoprolol 2019-03 Yes 25mg Take 25 mg U nivers succinate 0-10 by mouth ity of XL 25 mg 24 00:00: every [place] hr tablet 00 morning. Medica l Branch metoprolol 2019-03 Yes 25mg Take 25 mg U nivers succinate 0-10 by mouth ity of XL 25 mg 24 00:00: every [place] hr tablet 00 morning. Medica l Branch metoprolol 2019-03 Yes 25mg Take 25 mg U nivers succinate 0-10 by mouth ity of XL 25 mg 24 00:00: every [place] hr tablet 00 morning. Medica l Branch metoprolol 2019-03 Yes 25mg Take 25 mg U nivers succinate 0-10 by mouth ity of XL 25 mg 24 00:00: every [place] hr tablet 00 morning. Medica l Branch XARELTO 20 2019-03 Yes 20mg Take 20 mg U nivers mg tablet 0-10 by mouth ity of 00:00: every [place] 00 morning. Medical Branch metoprolol 2019-03 Yes 25mg Take 25 mg U nivers succinate 0-10 by mouth ity of XL 25 mg 24 00:00: every [place] hr tablet 00 morning. Medica l Branch XARELTO 20 2019-03 Yes 20mg Take 20 mg U nivers mg tablet 0-10 by mouth ity of 00:00: every [place] 00 morning. Medical Branch metoprolol 2019-03 Yes 25mg Take 25 mg U nivers succinate 0-10 by mouth ity of XL 25 mg 24 00:00: every [place] hr tablet 00 morning. Medica l Branch XARELTO 20 2019-03 Yes 20mg Take 20 mg U nivers mg tablet 0-10 by mouth ity of 00:00: every [place] 00 morning. Medical Branch XARELTO 20 2019-03- No 20mg Take 1 Univ ers mg tablet 0-10 03-26 tablet by ity of 00:00: 00:00 mouth [place] 00 :00 every Medical morning. Branch losartan Yes 50mg QD Take 50 mg Met hodi (COZAAR) 50 8-[address] MG tablet 18:28: daily. Hospit a 59 l rivaroxaban 2020-0 Yes 20mg QD Take 20 mg [facility] (XARELTO) 8-[address] 20 mg 18:28: daily. Hospita tablet 59 l ascorbic 2020-0 Yes 500mg QD Take 500 Meth po acid, 8-[address] vitamin C, 18:28: mouth Hospit a (VITAMIN C) 59 daily. l 500 MG tablet zinc 2020-0 Yes 220mg QD Take 220 [facility] sulfate 8-[address] (ZINCATE) 18:28: mouth Hospita 220 (50) mg 59 daily. l capsule vitamin E 2020-0 Yes 400U QD Take 400 Meth po 400 UNIT 8-[address] capsule 18:28: mouth Hospita 59 daily. l fluticasone 2020-0 Yes 2{spray QD 2 sprays [facility] propionate 8-09 } by Each st (FLONASE) 18:28: Nare route Ho spita 50 59 daily. l mcg/actuati on nasal spray losartan 2020-0 Yes 50mg QD Take 50 mg Met hodi (COZAAR) 50 8-[address] MG tablet 18:28: daily. Hospit a 59 l rivaroxaban 2020-0 Yes 20mg QD Take 20 mg [facility] (XARELTO) 8-[address] 20 mg 18:28: daily. Hospita tablet 59 l ascorbic 2020-0 Yes 500mg QD Take 500 Meth po acid, 8-[address] vitamin C, 18:28: mouth Hospit a (VITAMIN C) 59 daily. l 500 MG tablet zinc 2020-0 Yes 220mg QD Take 220 [facility] sulfate 8-[address] (ZINCATE) 18:28: mouth Hospita 220 (50) mg 59 daily. l capsule vitamin E 2020-0 Yes 400U QD Take 400 Meth po 400 UNIT 8-[address] capsule 18:28: mouth Hospita 59 daily. l fluticasone 2020-0 Yes 2{spray QD 2 sprays [facility] propionate 8-09 } by Each st (FLONASE) 18:28: Nare route Ho spita 50 59 daily. l mcg/actuati on nasal spray Xarelto 20 Xarelto 20 No Xarelto 20 MG MG MG Metoprolol Metoprolol No Metoprolol Succinate Succinate Succinate ER 25 MG ER 25 MG ER 25 MG Losartan Losartan No Losartan Potassium Potassium Potassium 50 MG 50 MG 50 MG losartan 20 losartan 20 No losartan mg mg 20 mg Immunizations Ordered Filled Immunization Date Status Comments Sourc e Immunization Name Name Flucelvax - single Flucelvax - single 2020-01-06 Completed [facility] - dose syringe dose syringe 11:32:00 [facility] Pneumococcal 2017-01-12 Completed [facility] Conjugate [facility] 00:00:00 [facility] ammy FLUCELVAX QUAD PF 2017-01-[address] 00:[facility] Pneumococcal Unknown Completed [facility] Conjugate [facility] ammy FLUCELVAX QUAD PF Unknown Completed [facility] Vital Signs Vital Name Observation Time Observation Value Comments Source Systolic blood 2022-09-29 23:52:00 143 mm[Hg] [facility] Diastolic blood 2022-09-29 23:52:00 80 mm[Hg] Unive rs[facility] of [facility] Heart rate 2022-09-29 23:52:00 71 /min [facility] Respiratory rate 2022-09-29 23:52:00 16 /min [facility] Oxygen saturation in 2022-09-29 23:52:00 98 /min [facility] Arterial blood by [facility] Pulse oximetry Branch Body temperature 2022-09-29 19:43:[address] [facility] Body height 2022-09-29 19:43:00 185.4 cm [facility] Body weight 2022-09-29 19:43:00 137.44 kg [facility] BMI 2022-09-29 19:43:00 39.98 kg/m2 [facility] Systolic blood 2022-06-10 18:01:00 114 mm[Hg] Univer [facility]ity of [facility] Diastolic blood 2022-06-10 18:01:00 62 mm[Hg] Unive rsity of [facility] Heart rate 2022-06-10 18:01:00 76 /min [facility] Body temperature 2022-06-10 18:01:00 36.83 [facility] 2022-06-10 18:01:00 20 /min [facility] Body height 2022-06-10 18:01:00 185.4 cm [facility] [place] [facility] Body weight 2022-06-10 18:01:00 139.935 kg [facility] [place] [facility] BMI 2022-06-10 18:01:00 40.70 kg/m2 [facility] [place] [facility] Oxygen saturation in 2022-06-10 18:01:00 98 /min [facility] Arterial blood by [place] [facility] cony Pulse oximetry Branch Respiratory rate 2020-12-29 00:16:00 19 /min [facility] [place] [facility] Body height 2020-12-29 00:16:00 185.4 cm [facility] [place] [facility] Body weight 2020-12-29 00:16:00 230.11 kg [facility] [place] [facility] BMI 2020-12-29 00:16:00 66.93 kg/m2 [facility] [place] [facility] Systolic blood 2020-12-29 00:40:00 137 mm[Hg] Univer sity of pressure [place] [facility] Diastolic blood 2020-12-29 00:40:00 78 mm[Hg] Unive rsity of pressure [place] [facility] Heart rate 2020-12-29 00:40:00 101 /min [facility] [place] [facility] Body temperature 2020-12-29 00:40:00 36.83 Bushra [facility] [place] [facility] Respiratory rate 2020-12-29 00:40:00 20 /min [facility] [place] [facility] Body weight 2020-12-29 00:40:00 229.974 kg [facility] [place] [facility] BMI 2020-12-29 00:40:00 66.89 kg/m2 [facility] [place] [facility] Oxygen saturation in 2020-12-29 00:40:00 95 /min [facility] Arterial blood by [facility] cony Pulse oximetry Branch Systolic blood 2020-03-14 02:00:00 136 mm[Hg] [facility]iver [facility] [place] [facility] Diastolic blood 2020-03-14 02:00:00 78 mm[Hg] Unive rsity of [facility] [place] [facility] Heart rate 2020-03-14 02:00:00 86 /min [facility] [place] [facility] Respiratory rate 2020-03-14 02:00:00 18 /min [facility] [place] [facility] Oxygen saturation in 2020-03-14 02:00:00 97 /min [facility] Arterial blood by [facility] Pulse oximetry Branch Body temperature 2020-03-14 00:01:00 35.83 Bushra [facility]ity [facility] Body weight 2020-03-14 00:01:00 204.119 kg [facility] BMI 2020-03-14 00:01:00 59.37 kg/m2 [facility] Systolic blood 2020-03-13 23:18:00 147 mm[Hg] Univer sity of pressure [facility] Diastolic blood 2020-03-13 23:18:00 80 mm[Hg] Unive rsity of pressure [facility] Heart rate 2020-03-13 23:13:00 93 /min [facility] Body temperature 2020-03-13 23:13:00 36.11 Bushra [facility] Respiratory rate 2020-03-13 23:13:00 18 /min [facility] Body height 2020-03-13 23:13:00 185.4 cm [facility] Body weight 2020-03-13 23:13:00 204.119 kg [facility] BMI 2020-03-13 23:13:00 59.37 kg/m2 [facility] Oxygen saturation in 2020-03-13 23:13:00 98 /min [facility] Arterial blood by [facility] Pulse oximetry [place] height 2020-01-06 09:00:00 73 [in_i] Common [facility] weight 2020-01-06 09:00:00 499 [lb_av] Common [facility] temperature 2020-01-06 09:00:00 98.3 [degF] Common [facility] bmi 2020-01-06 09:00:00 65.83 kg/m2 Common [facility] oximetry 2020-01-06 09:00:00 95 % Common [facility] respiratory rate 2020-01-06 09:00:00 20 /min [facility] blood pressure 2020-01-06 09:00:00 142 mm[Hg] Common [facility] systolic [facility] blood pressure 2020-01-06 09:00:00 82 mm[Hg] [facility] - diastolic [facility] Procedures Procedure Date / Time Performing Clinician Source Performed CT ABDOMEN PELVIS W 2022-09-29 21:40:00 Pierre Loyd [facility] CONTRAST Medical Branch ASSIGNMENT OF BENEFITS 2022-09-29 21:13:26 Doctor Unassigned, No [facility] Medical Branch CONSENT/REFUSAL FOR 2022-09-29 19:29:38 Doctor Unassigned, No [facility] Name Medical Branch US SCROTUM AND CONTENTS 2022-09-28 21:10:00 Helena Gipson [facility] Medical Branch [facility] PATIENT FINANCIAL 2022-06-10 17:58:36 Doctor Unassigned, No [facility] POLICY Name Medical Branch CONSENT/REFUSAL FOR 2022-06-10 17:58:21 [facility], [facility] Branch POCT SARS-COV-2 ANTIGEN 2022-06-10 17:54:00 Chilango Childs [facility] (BINAX NOW) Medical Branch [id number] 2021-05-25 00:00:00 ZEV [facility] ASSIGNMENT OF BENEFITS 2021-04-28 16:50:12 Doctor Unassigned, No [facility] Medical Branch CONSENT/REFUSAL FOR 2020-12-29 00:12:42 Doctor Unassigned, No [facility] Name Medical Branch ASSIGNMENT OF BENEFITS 2020-12-29 00:12:02 Doctor Unassigned, No [facility] Medical Branch AUTHORIZATION FOR 2020-03-21 06:01:00 Doctor Unassigned, No [facility] RELEASE OF PHI Name Medical Branch XR KNEE 3 VW RIGHT 2020-03-14 01:34:48 Andre Feliz [facility] Medical Branch NOTICE OF PRIVACY 2020-03-13 23:43:05 Doctor Unassigned, No [facility] PRACTICES Name Medical Branch CONSENT/REFUSAL FOR 2020-03-13 23:42:50 Doctor Unassigned, No [facility] Name Medical Branch Plan of Care Planned Activity Planned Date Details Comments Source Future Scheduled 2022-12-13 Screening for [facility] Test 19:56:41 malignant neoplasm of colon (procedure) [code = 999086219] Future Scheduled 2022-12-13 [facility] Test 19:56:41 malignant neoplasm of colon (procedure) [code = 935769384] Future Scheduled 2022-12-13 [facility] Test 19:56:41 malignant neoplasm of colon (procedure) [code = 041143657] Future Scheduled 2022-12-13 COVID-[address] [facility] Test 19:56:41 (#1) [code = COVID-19 VACCINE (#1)] Future Scheduled 2022-12-13 [facility] 19:56:41 screening (procedure) [code = 163809450] Future Scheduled 2022-12-13 [facility] Test 19:56:41 malignant neoplasm of colon (procedure) [code = 540273629] Future Scheduled 2022-12-13 [facility] Test 19:56:41 malignant neoplasm of colon (procedure) [code = 164072739] Future Scheduled 2022-12-13 [facility]INGLES [facility]ACCINES [facility] 19:56:41 (1 of 2) [code = SHINGLES VACCINES (1 of 2)] Future Scheduled 2022-12-13 [facility]ENZA [facility]ACCINE [facility] 19:56:41 (#1) [code = INFLUENZA VACCINE (#1)] Future Scheduled 2021-01-18 COVID-[address] [facility] Test 22:12:22 (1) [code = COVID-19 VACCINE (1)] Future Scheduled 2021-01-18 [facility] 22:12:22 screening (procedure) [code = 104059397] Future Scheduled 2021-01-18 [facility]INE [facility] 22:12:22 [code = INFLUENZA VACCINE] Encounters Start End Encounter Admission Attending Care Care Encounter Source Date/Time Date/Time Type Type Clinicians Facility Department ID 2021-04-12 Outpatient Star Mario [facility] [id number] Common 12:05:34 [id number] [facility] 2021-04-12 Outpatient Star Mario [facility] [id number] Common 11:57:26 [id number] [facility] 2022-12-13 2022-12-13 Outpatient R [facility] [id number] Univers 20:00:00 20:00:00 [facility] 2022-09-29 2022-09-29 Emergency X [facility] ERT [id number] Univers 14:44:00 18:56:00 PIERRE [facility] 2022-09-29 2022-09-29 Emergency [facility] [id number] Univers 14:44:00 18:56:00 [facility] 350.1.13.10 i ty of [place] U[place] [id number] [facility] [address] [place] 2022-09-29 2022-09-29 Nurse CLIVE Ordoñez 1.2.840.114 [id number] Univers 00:00:00 00:00:00 Triage Sera GONZALEZY 350.1.13.10 it y of [facility] 4.2.7.2.686 Rodolfo as [id number] [facility] [address] [place] 2022-09-28 2022-09-28 Outpatient R [facility] [id number] Univers 15:24:27 23:59:00 HELENA ity [facility] 2022-09-28 2022-09-28 [facility] [id number] Univers 15:24:27 23:59:00 Encounter Helena SPECIALTY 350.1.13.10 ity of [facility] 4.2.[place]2.[place] [id number] Mi ainsley NARVAEZ 806 [facility] 2022-06-10 2022-06-10 [facility] [id number] Univers 13:00:00 13:25:05 CHILANGO laquita [facility] 2022-06-10 2022-06-10 Urgent Chilango Childs [facility] 1.2.840.114 [id number] Univers 13:00:00 13:20:00 Care Unknown, Attending HEALTH 350.1.13.10 ity of [place] 4.2.7.2.686 Rodolfo as CAMRON?BLEA [phone] Mi ainsley MORELOS [address] [place] [address] MEDICAL OFFICE BUILDING 2022-06-10 2022-06-10 Orders Doctor CLIVE 1.2.840.114 [id number] Univers 00:00:00 00:00:00 Only Unassigned, TOMASZ 350.1.13.10 ity of [facility] 4.2.7.2.686 [place] as [phone] [address] 2021-05-25 2021-05-27 Inpatient RAFY TinocoBM SURG [id number] [facility] 13:50:00 13:26:00 Audencio 41 [facility] 2021-05-19 2021-05-19 Outpatient RAFY FarfanCL LABO [id number] [facility] 13:28:00 13:28:00 Audencio 99 [facility] 2021-04-28 2021-04-28 Laboratory Only, Ang Db Test [facility] 1.2.8 40.114 [id number] Univers 11:00:00 11:15:00 Only Green, Opal [facility] 350.1.13.10 ity [facility] 4.2.7.2.686 [place] as CAMRON?BLEA [phone] [address] MEDICAL OFFICE [facility] 2021-04-28 2021-04-28 Outpatient Mahi HERRING [facility] [id number] Univers 11:00:00 11:01:06 OPAL ity of [facility] 2021-04-28 2021-04-28 Orders Doctor CLIVE 1.2.840.114 [id number] Univers 00:00:00 00:00:00 Only UnassignedTOMASZ 350.1.13.10 ity of [place] [facility] 4.2.7.2.686 Rdoolfo as [phone] [address] 2020-12-28 2020-12-28 Urgent Provider, Ang Db Urgent Care [facility] 1.2.840.114 [id number] Univers 20:20:00 20:40:00 Care Green, Opal Health 350.1.13.10 ity of [place] 4.2.7.2.686 Rodolfo as Camron?Blea [phone] [address] Office [facility] 2020-12-28 2020-12-28 Outpatient Mah[facility] [id number] Univers 20:20:00 20:20:00 OPAL ity of [facility] 2020-12-28 2020-12-28 Outpatient R [facility] [id number] Univers 20:15:00 20:15:00 ity [facility] 2020-12-28 2020-12-28 Nurse Nurse, Bassem [facility] 1.2.840.114 [id number] Univers 19:42:08 20:02:08 Visit Armin Fitzgerald Soxiable 350.1.13.10 ity of [place] 4.2.7.2.686 Rodolfo as Camron?Blea [phone] [address] Medical Office Building 2020-12-28 2020-12-28 Orders Doctor CLIVE 1.2.840.114 [id number] Univers 00:00:00 00:00:00 Only Unassigned, TOMASZ 350.1.13.10 it[facility] of [facility] 4.2.7.2.686 Rodolfo as [phone] [address] 2020-03-21 2020-03-21 Orders Doctor CLIVE 1.2.840.114 [id number] Univers 00:00:00 00:00:00 Only Unassigned, TOMASZ 350.1.13.10 ity of [facility] 4.2.7.2.686 [place] as [phone] [address] 2020-03-13 2020-03-13 Emergency X TRINI, K [facility] ERT [id number] Univers 18:03:00 21:47:00 ity of [facility] 2020-03-13 2020-03-13 Emergency Trini, K [facility] 1.2.840.114 [id number] Univers 18:03:00 21:47:00 Alissa Melchor 350.1.13.10 i ty of [place] 4.2.7.2.686 [place] [facility] [id number] [address] 2020-03-13 2020-03-13 Urgent Provider, Bassem Urgent Care [facility] 1.2.840.114 [id number] Univers 17:08:10 17:28:10 Care Opal [facility] 350.1.13.10 ity of [place] 4.2.7.2.686 Rodolfo as Professio [phone] [address] Office [facility] 2020-03-13 2020-03-13 Outpatient [facility] [id number] Univers 17:00:00 17:00:00 OPAL ity of [facility] 2020-03-13 2020-03-13 Orders Doctor CLIVE 1.2.840.114 [id number] Univers 00:00:00 00:00:00 Only Unassigned, TOMASZ 350.1.13.10 [facility] 4.2.7.2.686 [place] as [phone] [address] 2020-02-24 2020-02-24 Laboratory Lab, Adc Fam Po I [facility] 1.2. 840.114 [id number] Univers 09:01:15 09:21:15 Only Ezequiel, Cathleen [facility] Health 350.1.13.10 ity of [place] 4.2.7.2.686 [place]fo as Professio [phone] [address] 2020-02-24 2020-02-24 Outpatient R [facility] [id number] Univers 09:00:00 09:00:00 ity of [facility] 2020-02-15 2020-02-15 Telephone Nevaeh [facility] [id number] [id number] Univers 00:00:00 00:00:00 Opal Health 350.1.13.10 it y of [place] 4.2.7.2.686 Rodolfo as Professio [phone] [address] 2020-02-14 2020-02-14 Laboratory Lab, Adc [facility] Pob I [facility] 1.2. 840.114 [id number] Univers 19:22:52 19:42:52 Only Green, Opal Health 350.1.13.10 ity of [place] 4.2.7.2.686 Rodolfo as Professio [phone] [address] 2020-02-14 2020-02-14 Outpatient [facility] [id number] Univers 19:20:00 19:20:00 OPAL ity [facility] 2020-02-14 2020-02-14 Letter Doctor CLIVE 1.2.840.114 [id number] Univers 00:00:00 00:00:00 (Out) Unassigned, TOMASZ 350.1.13.10 ity of [place] [facility] 4.2.7.2.686 Rodolfo as [phone] [address] 2020-01-06 2020-01-06 PREV VISIT [facility] [id number] Common 00:00:00 00:00:00 NEW AGE [facility] 40-64 - [facility] Results Test Description Test Time Test Comments Results Result Comments Source POCT SARS-COV-2 ANTIGEN (BINAX NOW) 2022-06-10 18:09:00 Test Item Value Reference Range Interpretation Comme nts POCT SARS-COV-2 ANTIGEN (test code = 05230-9) Positive Not Dete cted A On board controls acceptable with C Line (test code = 3574) Yes Lab Interpretation (test code = 51783-1) [facility] 15[facility]59[facility]00 Test Item Value Reference Range Interpretation Comments SURGICAL (test code = SR) --------RUN DATE: 06/01/21 [facility] PAGE 1 RUN TIME: 1559 Specimen Inquiry RUN USER: INTERFACE --------PATIENT: BRITTANEY WYMAN LOC: EVON U #: [id number] AGE/SX: 50/M ROOM: [facility] RE05/25/21REG DR: Adriana Farfan MD : 71 BED: B DIS: 05/27/21 STATUS: DIS IN TLOC: -------- SPEC #: [id number] RECD: 05/26/21 STATUS: JOSEPH RELisa #: [id number] CRUZ: 05/25/[address] [facility] [address]: Adriana Farfan MD ENTERED: 05/26/21 SP TYPE: SURGICAL OTHR DR: Anushka Soriano MD ORDERED: [id number], 66416, ANATOMIC SPEC COPIES TO: Ardiana Farfan MD [address] [place] [address] Anushka Soriano MD [id number] [place] [address] PROCEDURES: 66400 (05/26/21) 35692 (05/31/21-1613) TISSUES: A. STOMACH SUBTOTAL / TOTAL RESECTION NOT TUMOR/SLEEVE FINAL DIAGNOSIS STOMACH, LAPAROSCOPIC SLEEVE GASTRECTOMY: - Chronic gastritis, mild. - No Helicobacter pylori identified on IHC. - No intestinal metaplasia or dysplasia. GROSS DESCRIPTION Received in formalin labeled with Patient's name, , MRN and "portion of stomach". Consists of a tubular fragment of stomach that measures 18.5 cm in length and 3.5-4 cm indiameter, the specimen has a stapled line that measures 23 cm in length, the serosalsurface is dominguez, smooth and glistening; the mucosal surface is dominguez, smooth, glistening andunremarkable. Door And Arrival Attendant sections submitted in a single cassette.XZ Technical component excluding immunohistochemistry is performed at [facility], [address] [place] [address] Technical component of all immunohistochemistry is performed at [facility], [address] [place] [address], [address], [place] [address] Immunohistochemistry: This test was developed and its performance characteristics CONTINUED ON NEXT PAGE --------RUN DATE: 06/01/21 [facility] PAGE 2 RUN TIME: 1559 Specimen Inquiry RUN USER: INTERFACE --------SPEC #: [id number] PATIENT: BRITTANEY WYMAN #[id number] (Continued) GROSS DESCRIPTION (Continued) determined by this laboratory. It has not been approved nor does it need approval by the USFDA. Appropriate positive and negative controls are reviewed and judged to be acceptable.This laboratory is certified under the Clinical Laboratory Improvement Amendments (CLIA-88)as qualified to perform high complexity clinical laboratory testing. MICROSCOPIC DESCRIPTION The diagnosis is based on microscopic examination. CLINICAL INFORMATION COLLECTION DATE: 05/25/2021 MORBID OBESITY Signed SIGNATURE ON FILE Jay Jay Bernardo 06/01/21 1559 -------- END OF REPORT BASIC METABOLIC [id number] 05:30:00 Test Item Value Reference Range Interpretation Comments SODIUM (test code = 140 mmol/L 136-145 N NA) POTASSIUM (test code 3.9 mmol/L 3.5-5.1 N = K) CHLORIDE (test code 105.0 mmol/L 98-107 N = CL) CARBON DIOXIDE (test 23.0 mmol/L 21-32 N code = CO2) ANION GAP (test code 15.9 10-20 N = GAP) GLUCOSE (test code = 111 mg/dL 74-106 H GLU) BLOOD UREA NITROGEN 7 mg/dL 7-18 N (test code = BUN) GLOMERULAR > 60 mL/min See_Comment Estimated GFR b y FILTRATION RATE using Modifi ed MDRD (test code = GFR) formula.[facility] kidney disease is defined as eith er kidney damageor GFR <60 mL/min/1.73 m2 for >3 months. [Automated mess age] The system [employer] generated this result transmitted ref erence range: >=60. Th e reference range was not used to int erpret this result as normal/abnormal . CREATININE (test 0.70 mg/dL 0.7-1.3 N code = CREAT) BUN/CREATININE RATIO 9.5 10-20 L (test code = BUN/CREA) CALCIUM (test code = 8.5 mg/dL 8.5-10.1 N CA) CBC W/AUTO [id number] 05:18:00 Test Item Value Reference Range Interpretation Comments WHITE BLOOD CELL (test code = 9.9 K/mm3 4.5-12.5 N WBC) RED BLOOD CELL (test code = 4.44 mill/mm3 4.0-5.8 N RBC) HEMOGLOBIN (test code = HGB) 12.5 gram/dL 13.0-17.5 L HEMATOCRIT (test code = HCT) 39.7 % 42.0-52.0 L MEAN CELL VOLUME (test code = 89.4 fL 80-98 N MCV) MEAN CELL HGB (test code = MCH) 28.2 picogram 27.0-33.0 N MEAN CELL HGB CONCETRATION 31.5 gram/dL 33.0-36.0 L (test code = MCHC) RED CELL DISTRIBUTION WIDTH 14.1 % 11.6-16.2 N (test code = RDW) RED CELL DISTRIBUTION WIDTH SD 45.4 fL 37.0-51.0 N (test code = RDW-SD) PLATELET COUNT (test code = 322 K/mm3 150-450 N PLT) MEAN PLATELET VOLUME (test code 10.2 fL 6.7-11.0 N = MPV) NEUTROPHIL % (test code = NT%) 84.5 % 39.0-69.0 H IMMATURE GRANULOCYTE % (test 0.4 % 0.0-5.0 N code = IG%) LYMPHOCYTE % (test code = LY%) 11.3 % 25.0-55.0 L MONOCYTE % (test code = MO%) 3.8 % 0.0-10.0 N EOSINOPHIL % (test code = EO%) 0.0 % 0.0-5.0 N BASOPHIL % (test code = BA%) 0.0 % 0.0-1.0 N NUCLEATED RBC % (test code = 0.0 % 0-0 N NRBC%) NEUTROPHIL # (test code = NT#) 8.39 K/mm3 1.8-7.7 H IMMATURE GRANULOCYTE # (test 0.04 x10 3/uL 0-0.03 H code = IG#) LYMPHOCYTE # (test code = LY#) 1.12 K/mm3 1.0-5.0 N MONOCYTE # (test code = MO#) 0.38 K/mm3 0-0.8 N EOSINOPHIL # (test code = EO#) 0.00 K/mm3 0.0-0.5 N BASOPHIL # (test code = BA#) 0.00 K/mm3 0.0-0.2 N NUCLEATED RBC # (test code = 0.00 K/mm3 0.0-0.1 N NRBC#) MANUAL DIFF REQUIRED (test code NO = MDIFF) [id number] 07:35:00 Test Item Value Reference Range Interpretation Comments GLUBED (test code = 89 mg/dL 74-106 N Performe d by certified GLUBED) 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 Positiv e results do not rule out bacterial infection or co -infection with other viru ses. Negative result s do not preclude SARS-C oV-2 infection andsh ould not be used as the cayden e basis for patient managementdecis ions. Negative result s must be combined with otherclinical observations, p atient history, and epidemiological information . Detection of SARS-CoV-2 RNA may be affe cted bysample collec tion methods, storag e conditions, and /or stageof infection. Candy l RNA mutations, vacc inations, antiviraltherap eutics, antibiotics, chemotherapeuti c orimmunosuppres maricruz drugs have not been e valuated for effectson d etection. Results are for the identification of SARS-CoV-2 RNA usingreal-time (RT) polymerase xenia n reaction (PCR) technolog yfor the qualitative det ection of nucleic acids f rom [id number] v irus and diagnosis of SA RS-CoV-2 virusinfection. It is an Emergency Use Authorization ( EUA) testauthorized by the U.S. FDA. Novel Coronavirus 05:32:00 Test Item Value Reference Range Interpretation Comments Novel Coronavirus Negative Negative Positive r esults are 2019 Inhouse (test indicativ e of the presence code = [id number]) ofSARS-CoV -2 RNA, clinical correlation wit h patient historyand othe r diagnostic info rmation is necessary to determinepatien t infection status. Positiv e results do not rule out bacterial infection or co -infection with other viru ses. Negative result s do not preclude SARS-C oV-2 infection andsh ould not be used as the cayden e basis for patient managementdecis ions. Negative result s must be combined with otherclinical observations, p atient history, and epidemiological information . Detection of SARS-CoV-2 RNA may be affe cted bysample collec tion methods, storag e conditions, and /or stageof infection. Candy l RNA mutations, vacc inations, antiviraltherap eutics, antibiotics, chemotherapeuti c orimmunosuppres maricruz drugs have not been e valuated for effectson d etection. Results are for the identification of SARS-CoV-2 RNA usingreal-time (RT) polymerase xenia n reaction (PCR) technolog yfor the qualitative det ection of nucleic acids f rom [id number] v irus and diagnosis of SA RS-CoV-2 virusinfection. It is an Emergency Use Authorization ( EUA) testauthorized by the U.S. FDA. COMPREHENSIVE METABOLIC [id number] 13:23:00 Test Item Value Reference Range Interpretation Comments SODIUM (test code = 139 mmol/L 136-145 N NA) POTASSIUM (test code 3.7 mmol/L 3.5-5.1 N = K) CHLORIDE (test code = 103.0 mmol/L 98-107 N CL) CARBON DIOXIDE (test 27.0 mmol/L 21-32 N code = CO2) ANION GAP (test code 12.7 10-20 N = GAP) GLUCOSE (test code = 96 mg/dL 74-106 N GLU) BLOOD UREA NITROGEN 11 mg/dL 7-18 N (test code = BUN) GLOMERULAR FILTRATION > 60 mL/min See_Comment Estima cristino GFR by RATE (test code = using Ace fied MDRD GFR) formula.Chronic kidney disease is defined as eith er kidney damageor GFR <60 mL/min/1.73 m2 for >3 months. [Automated mess age] The system [employer] generated this result transmit cristino reference range : >=60. The refer ence range was not u sed to interpret th is result as normal/abnormal . CREATININE (test code 0.90 mg/dL 0.7-1.3 N = CREAT) BUN/CREATININE RATIO 12.5 10-20 N (test code = BUN/CREA) TOTAL PROTEIN (test 7.5 gram/dL 6.4-8.2 N code = PROT) ALBUMIN (test code = 4.1 g/dL 3.4-5.0 N ALB) GLOBULIN (test code = 3.4 gram/dL 2.7-4.2 N GLOB) ALBUMIN/GLOBULIN 1.2 0.75-1.50 N RATIO (test code = A/G) CALCIUM (test code = 9.5 mg/dL 8.5-10.1 N CA) BILIRUBIN TOTAL (test 0.60 mg/dL 0.0-1.0 N code = BILT) SGOT/AST (test code = 40 IUnit/L 15-37 H AST) SGPT/ALT (test code = 49 IUnit/L 12-78 N ALT) ALKALINE PHOSPHATASE 97 IUnit/L 45-117 N Note change in TOTAL (test code = reference range due ALKP) to change in reagent. URINALYSIS [id number] 13:12:00 Test Item Value Reference Range Interpretation Comments UA COLOR (test code = Light-Yellow YELLOW COLU) UA APPEARANCE (test CLEAR CLEAR IS THE S AMPLE code = APPU) FROM ER OR L&D? Y IF THE ANSWER I S NO,PLEASE DOCUMENT TWO RN SIGNATURES HERE - by [email or web address] 05/19/21 1312 UA GLUCOSE DIPSTICK NEGATIVE mg/dL NEGATIVE (test code = DGLUU) UA BILIRUBIN DIPSTICK NEGATIVE mg/dL NEGATIVE (test code = BILU) UA KETONE DIPSTICK 10 (1+) mg/dL NEGATIVE A (test code = KETU) UA SPECIFIC GRAVITY 1.016 1.001-1.035 (test code = SGU) UA BLOOD DIPSTICK Negative mg/dL NEGATIVE (test code = CRYSTAL) UA PH DIPSTICK (test 5.5 5.0-8.0 code = TRINH) UA PROTEIN DIPSTICK NEGATIVE mg/dL NEGATIVE (test code = PROU) UA UROBILINIOGEN Normal mg/dL NEGATIVE DIPSTICK (test code = URO) UA NITRITE DIPSTICK NEGATIVE NEGATIVE (test code = TESSA) UA LEUKOCYTE ESTERASE NEGATIVE Fina/uL NEGATIVE W REFLEX (test code = LEUUR) UA WBC (test code = 0-5 per HPF 0-5 WBCU) UA RBC (test code = 6-10 #/HPF 0-5 A RBCU) UA EPITHELIAL CELLS FEW per HPF FEW (test code = EPIU) UA BACTERIA (test FEW #/HPF NONE A code = BACU) UA MUCUS (test code = FEW #/LPF FEW MUCU) Urine Source? Clean CatchPROTHROMBIN [id number] 13:05:00 Test Item Value Reference Range Interpretation Comments PROTHROMBIN TIME 12.3 seconds 9.0-14.0 N PATIENT (test code = PTP) INTERNATIONAL NORMAL 1.1 0.8-1.2 N The the rapeutic range RATIO (test code = for oral INR) anticoagulant t herapy formost indicat ions is an internati onal normalized rati o (INR)of between 2.0 and 3.0. The recommended therapeutic INR range for various cli nical situations is l isted below: Clinical Situat ion INR range Pulmonary embol ism treatment (2.0-3.0)Venous thrombosis treatmentVenous thrombosis prophylaxis (hi gh risk surgery)Prevent ion of systemic emboli sm from: Acute myocardial infa rction Valvular heart disease Atrial fibrillation Mechanical pros thetic heart valves (2.5-3.5) IS PATIENT ON ANTICOAGULANTS? NTHROMBOPLASTIN TIME [id number] 13:05:00 Test Item Value Reference Range Interpretation Comments THROMBOPLASTIN TIME PARTIAL 39.4 seconds 23.0-37.0 H (test code = PTT) IS PATIENT ON ANTICOAGULANTS? NCBC W/AUTO [id number] 12:58:00 Test Item Value Reference Range Interpretation Comments WHITE BLOOD CELL (test code = 6.3 K/mm3 4.5-12.5 N WBC) RED BLOOD CELL (test code = 4.52 mill/mm3 4.0-5.8 N RBC) HEMOGLOBIN (test code = HGB) 12.7 gram/dL 13.0-17.5 L HEMATOCRIT (test code = HCT) 40.0 % 42.0-52.0 L MEAN CELL VOLUME (test code = 88.5 fL 80-98 N MCV) MEAN CELL HGB (test code = MCH) 28.1 picogram 27.0-33.0 N MEAN CELL HGB CONCETRATION 31.8 gram/dL 33.0-36.0 L (test code = MCHC) RED CELL DISTRIBUTION WIDTH 13.6 % 11.6-16.2 N (test code = RDW) RED CELL DISTRIBUTION WIDTH SD 44.0 fL 37.0-51.0 N (test code = RDW-SD) PLATELET COUNT (test code = 337 K/mm3 150-450 N PLT) MEAN PLATELET VOLUME (test code 9.9 fL 6.7-11.0 N = MPV) NEUTROPHIL % (test code = NT%) 61.0 % 39.0-69.0 N IMMATURE GRANULOCYTE % (test 0.3 % 0.0-5.0 N code = IG%) LYMPHOCYTE % (test code = LY%) 31.2 % 25.0-55.0 N MONOCYTE % (test code = MO%) 5.1 % 0.0-10.0 N EOSINOPHIL % (test code = EO%) 2.1 % 0.0-5.0 N BASOPHIL % (test code = BA%) 0.3 % 0.0-1.0 N NUCLEATED RBC % (test code = 0.0 % 0-0 N NRBC%) NEUTROPHIL # (test code = NT#) 3.86 K/mm3 1.8-7.7 N IMMATURE GRANULOCYTE # (test 0.02 x10 3/uL 0-0.03 N code = IG#) LYMPHOCYTE # (test code = LY#) 1.97 K/mm3 1.0-5.0 N MONOCYTE # (test code = MO#) 0.32 K/mm3 0-0.8 N EOSINOPHIL # (test code = EO#) 0.13 K/mm3 0.0-0.5 N BASOPHIL # (test code = BA#) 0.02 K/mm3 0.0-0.2 N NUCLEATED RBC # (test code = 0.00 K/mm3 0.0-0.1 N NRBC#) MANUAL DIFF REQUIRED (test code NO = MDIFF) - XR CHEST 2 [id number] 11:58:00 [facility])Name: BRITTANEY WYMAN : 1970 Sex: M FAX: Adriana Holder MD [phone] [place]: O St: PRE Name: BRITTANEY WYMAN [facility] : 1970 Age/S: 50/M [facility] Unit #: [id number] Loc: [place] [address] Phys: Adriana Farfan MD Acct: [id number] Dis Date: Status: PRE IN PHONE #: [phone] Exam Date: 05/19/2021 1220 FAX #: [phone] Reason: PRE OP EXAMS: CPT CODE: [id number] XR CHEST 2 V 04557 HISTORY: Preop. COMPARISON: None available. Location: [facility]. AP and lateral view of the chest: No acute infiltrates, effusion or congestion. Cardiac and the mediastinal silhouette are within normal limits. DJD of the dorsal spine. IMPRESSION: No acute infiltrates, effusion or congestion. at 1158 Reported and signed by: Eric Cunningham M.D. CC: Adriana Farfan MD Technologist: RT TEQUILA(R) Trnscrd Date/Time/By: 05/19/2021 (0648) : By: [email or web address] Orig Print D/T: S: 05/19/2021 (8835) PAGE 1 Signed Report
[2022-12-13 20:40] LABS: Absolute Lymphocytes (CBC) 1.8 K/uL (0.7-4.9); Lymphocytes % 25.1 % (15.3-44.8); MCV 88.3 fL (80-100); MPV 7.6 fL (7.6-11.3); Platelets 250 thou/uL (152-406); RBC Red Blood Cell Count 4.87 M/uL (4.33-5.43)
[2022-12-13 20:54] LABS: Protime INR 1.02
[2022-12-13] MEDS ORDERED: ASPIRIN 81 MG CHEWABLE TABLET ONE (20:57)
[2022-12-13] MEDS ORDERED: ONDANSETRON 4 MG/2 ML VIAL ONE (20:57)
[2022-12-13] MEDS ORDERED: MORPHINE 4 MG/ML SYR ONE (20:57)
[2022-12-13] MEDS ORDERED: FAMOTIDINE 20 MG/2 ML VIAL IV ONE (20:58)
[2022-12-13] MEDS ORDERED: ENOXAPARIN 100 MG/ML SYR SQ ONE (20:58)
[2022-12-13 21:12] LABS: Albumin 3.4 g/dL (3.4-5.0); Bilirubin Direct 0.2 mg/dL (0-0.2); Bilirubin Indirect, Calculated 0.5 mg/dL (0.2-0.8); Bilirubin Total 0.7 mg/dL (0.2-1.0); Magnesium 2.3 mg/dL (1.6-2.4); Protein, Total 6.9 g/dL (6.4-8.2); Troponin High Sensitivity 5.1 pg/mL (<58.9)
--- NOTE | 2022-12-13 21:14 | ER ---
Nurse's Notes [facility] Name: Laurent Duffy Age: 52 yrs Sex: Male : 1970 Arrival Date: 12/13/2022 Time: 19:54 Bed 4 Private MD: Diagnosis: Chest pain on breathing;Obesity, unspecified;Dyspnea Presentation: 12/13 19:59 Chief complaint: Patient states: left side chest pain,onset yesterday AM. Patient pf1 stated took ASA 81mg at 0500 this AM. Patient denies any other symptoms. 19:59 Coronavirus screen: Vaccine status: Patient reports receiving the 2nd dose of the covid pf1 vaccine. [place] Client denies travel out of the [place] in the last 14 days. At this time, the client does not indicate any symptoms associated with coronavirus-19. Ebola Screen: Patient negative for fever greater than or equal to 101.5 degrees Fahrenheit, and additional compatible Ebola Virus Disease symptoms. Initial Sepsis Screen: Does the patient meet any 2 criteria? No. Patient's initial sepsis screen is negative. Does the patient have a suspected source of infection? No. Patient's initial sepsis screen is negative. Risk Assessment: Do you want to hurt yourself or someone else? Patient reports no desire to harm self or others. 19:59 Method Of Arrival: Ambulatory pf1 19:59 Acuity: ZACKARY 2 pf1 21:16 Onset of symptoms was December 13, 2022. jw7 Triage Assessment: 20:00 General: Appears in no apparent distress. comfortable, Behavior is calm, cooperative. jw7 Pain: Complains of pain in chest Pain does not radiate. Quality of pain is described as heavy, pressure, Pain began suddenly, Is continuous. EENT: No deficits noted. No signs and/or symptoms were reported regarding the EENT system. Neuro: No deficits noted. Islas Agitation-Sedation Scale (RASS): 0 - Alert and Calm Level of Consciousness is awake, alert, obeys commands, Oriented to person, place, time, situation. Cardiovascular: Reports chest pain, Heart tones S1 S2 present Capillary refill < 3 seconds Clubbing of nail beds is absent JVD is absent Patient's skin is warm and dry. Rhythm is sinus rhythm. Respiratory: No deficits noted. Airway is patent Trachea midline Respiratory effort is even, unlabored, Respiratory pattern is regular, symmetrical. GI: No deficits noted. No signs and/or symptoms were reported involving the gastrointestinal system. Abdomen is round non-distended. : No deficits noted. No signs and/or symptoms were reported regarding the genitourinary system. Derm: No deficits noted. No signs and/or symptoms reported regarding the dermatologic system. Skin is intact, is healthy with good turgor, Skin is dry, Skin is normal, Skin temperature is warm. Musculoskeletal: No deficits noted. No signs and/or symptoms reported regarding the musculoskeletal system. Circulation, motion, and sensation intact. Range of motion: intact in all extremities. Historical: - Allergies: 20:30 No Known Allergies; pf1 - PMHx: 20:30 Atrial Fib; Hypertension; back pain; pf1 - PSHx: 20:30 Cardiac Ablation; right knee surgery (Cardiac Ablation); gastric sleeve (Cardiac pf1 Ablation); - Immunization history:: Adult Immunizations up to date, Client reports receiving the 2nd dose of the Covid vaccine, [place] Last tetanus immunization: > 10 years ago Flu vaccine is not up to date. - Social history:: Smoking status: Patient denies any tobacco usage or history of. Patient/guardian denies using alcohol, street drugs. Screenin:00 [facility] ED Fall Risk Assessment (Adult) History of falling in the last 3 months, jw7 including since admission No falls in past 3 months (0 pts) Score/Fall Risk Level 0 - 2 = Low Risk. Abuse screen: Denies threats or abuse. Denies injuries from another. Nutritional screening: No deficits noted. Tuberculosis screening: No symptoms or risk factors identified. Assessment: 21:20 General: see triage assessment. jw7 Vital Signs: 19:59 BP 125 / 68; Pulse 82; Resp 14; Temp 98; Pulse Ox 100% on R/A; Weight 145.15 kg; Height pf1 6 ft. 1 in. ; Pain 6/10; 21:00 BP 114 / 77; Pulse 91; Resp 13 S; Pulse Ox 100% on R/A; jw7 22:45 BP 133 / 64; Pulse 86; Resp 18 S; Pulse Ox 95% on R/A; cm10 19:59 Body Mass Index 42.22 (145.15 kg, 185.42 cm) pf1 19:59 Pain Scale: Adult pf1 ED Course: 19:59 Patient arrived in ED. pf1 20:00 Manish Otto MD is Attending Physician. mindy 20:00 Patient has correct armband on for positive identification. Bed in low position. Call jw light in reach. 20:00 Arm band placed on. 7 20:12 Jennifer Grimes RN is Primary Nurse. 7 20:27 Triage completed. pf1 20:32 Initial lab(s) drawn, by nj, sent to lab. EKG done, by ED staff, reviewed by Manish Otto MD. Inserted saline lock: 22 gauge in right antecubital area, using aseptic technique. Blood collected. 20:51 XRAY Chest (1 view) In Process Unspecified. EDMS 21:11 Urine collected: clean catch specimen, cloudy, yvette colored. jw7 21:13 Ilya Velasco MD is Hospitalizing Provider. [facility] 21:46 CT Chest For PE Angio In Process Unspecified. EDMS 22:09 US Extremity Venous W Compression Adrian In Process Unspecified. EDMS 22:34 No provider procedures requiring assistance completed. Patient admitted, IV remains in cm10 place. 22:34 Provided Education on: Need for admission. cm10 Administered Medications: 21:11 Drug: morphine IVP or IV 4 mg IVP once over 4 mins Route: IVP; Infused Over: 4 mins; jw7 Site: right antecubital; 22:35 Follow up: Response: No adverse reaction cm10 21:11 Drug: Ondansetron IVP 4 mg IVP once; over 2 minutes Route: IVP; Site: right antecubital;jw7 22:35 Follow up: Response: No adverse reaction cm10 21:11 Drug: Enoxaparin Sub-Q 100 mg Sub-Q once Route: Sub-Q; Site: abdomen; jw7 22:35 Follow up: Response: No adverse reaction cm10 21:12 Drug: Aspirin PO Chewable Tablet 324 mg PO once; 81 mg tablets x 4 Route: PO; jw7 21:12 Drug: Famotidine IVP 20 mg IVP once; dilute with 10 mL 0.9% NaCl; give over 2 minutes jw7 Route: IVP; Site: right antecubital; 22:35 Follow up: Response: No adverse reaction cm10 Medication: 22:34 VIS not applicable for this client. cm10 Outcome: 21:13 Decision to Hospitalize by Provider. mindy 22:34 Admitted to Med/surg accompanied by nurse, via wheelchair, room 231, Report called to mae Coyle RN 22:34 Condition: good cm10 22:34 Instructed on the need for admit, 22:59 Patient left the ED. cm10 Signatures: Dispatcher [employer] EDMS Manish Otto MD MD cha Waits, Jodi RN RN jw7 Amy Dickson RN RN pf1 Sanaz Lee RN RN cm10 Corrections: (The following items were deleted from the chart) 16 21:12 General: Appears in no apparent distress. comfortable, Behavior is calm, jw7 cooperative, jw7 : 21:12 Pain: Complains of pain in chest Pain does not radiate. Quality of pain is [facility] described as heavy, pressure, Pain began suddenly, Is continuous, jw7 : 21:12 EENT: No deficits noted. No signs and/or symptoms were reported regarding the [facility] EENT system. jw7 : 21:12 Neuro: No deficits noted. Islas Agitation-Sedation Scale (RASS): 0 - Alert and jw7 Calm Level of Consciousness is awake, alert, obeys commands, Oriented to person, place, time, situation, jw7 : 21:12 Cardiovascular: Reports chest pain, Heart tones S1 S2 present Capillary refill < jw7 3 seconds Clubbing of nail beds is absent JVD is absent Patient's skin is warm and dry. Rhythm is sinus rhythm jw7 : 21:12 Respiratory: No deficits noted. Airway is patent Trachea midline Respiratory [facility] effort is even, unlabored, Respiratory pattern is regular, symmetrical, jw7 : 21:12 GI: No deficits noted. No signs and/or symptoms were reported involving the [facility] gastrointestinal system. Abdomen is round non-distended, jw7 : 21:12 : No deficits noted. No signs and/or symptoms were reported regarding the [facility] genitourinary system. jw7 : 21:12 Derm: No deficits noted. No signs and/or symptoms reported regarding the [facility] dermatologic system. Skin is intact, is healthy with good turgor, Skin is dry, Skin is normal, Skin temperature is warm jw7 : 21:12 Musculoskeletal: No deficits noted. No signs and/or symptoms reported regarding jw7 the musculoskeletal system. Circulation, motion, and sensation intact. Range of motion: intact in all extremities, jw7 21:20 21:00 BP 112 / 58; Pulse 79bpm; Resp 15bpm; Spontaneous; Pulse Ox 98% RA; jw7 jw7
--- NOTE | 2022-12-13 21:14 | EDPHYS ---
Physician Documentation [facility] Name: Laurent Duffy Age: 52 yrs Sex: Male : 1970 Arrival Date: 12/13/2022 Time: 19:54 Bed 4 Private MD: FANNY Physician Manish Otto HPI: 12/13 21:05 This 52 yrs old Unknown Male presents to ER via Ambulatory with complaints of Chest mindy Pain. 21:05 The patient or guardian reports chest pain that is located primarily in the substernal mindy area, anterior chest wall, left. Onset: 1 day(s) ago. The pain does not radiate. Associated signs and symptoms: The patient has no apparent associated signs or symptoms. The chest pain is described as a pressure. Duration: The patient or guardian reports multiple episodes, that are intermittent. Modifying factors: The symptoms are alleviated by nothing. the symptoms are aggravated by nothing. Severity of pain: At its worst the pain was mild in the emergency department the pain has improved mildly. The patient has experienced similar episodes in the past, several times. Historical: - Allergies: 20:30 No Known Allergies; pf1 - PMHx: 20:30 Atrial Fib; Hypertension; back pain; pf1 - PSHx: 20:30 Cardiac Ablation; right knee surgery (Cardiac Ablation); gastric sleeve (Cardiac pf1 Ablation); - Immunization history:: Adult Immunizations up to date, Client reports receiving the 2nd dose of the Covid vaccine, pfizer Last tetanus immunization: > 10 years ago Flu vaccine is not up to date. - Social history:: Smoking status: Patient denies any tobacco usage or history of. Patient/guardian denies using alcohol, street drugs. ROS: 21:07 Constitutional: Negative for fever, chills, and weight loss, Eyes: Negative for injury, mindy pain, redness, and discharge, ENT: Negative for injury, pain, and discharge, Neck: Negative for injury, pain, and swelling, Abdomen/GI: Negative for abdominal pain, nausea, vomiting, diarrhea, and constipation, Back: Negative for injury and pain, : Negative for injury, bleeding, discharge, and swelling, MS/Extremity: Negative for injury and deformity, Skin: Negative for injury, rash, and discoloration, Neuro: Negative for headache, weakness, numbness, tingling, and seizure, Psych: Negative for depression, anxiety, suicide ideation, homicidal ideation, and hallucinations, Allergy/Immunology: Negative for hives, rash, and allergies, Endocrine: Negative for neck swelling, polydipsia, polyuria, polyphagia, and marked weight changes, Hematologic/Lymphatic: Negative for swollen nodes, abnormal bleeding, and unusual bruising, 21:07 Cardiovascular: Positive for chest pain, of the chest, 21:07 Respiratory: Positive for pleurisy, of the anterior aspect of left upper chest, shortness of breath, Exam: 21:07 Constitutional: This is a well developed, well nourished patient who is awake, alert, mindy and in no acute distress. Head/Face: Normocephalic, atraumatic. Eyes: Pupils equal round and reactive to light, extra-ocular motions intact. Lids and lashes normal. Conjunctiva and sclera are non-icteric and not injected. Cornea within normal limits. Periorbital areas with no swelling, redness, or edema. ENT: Nares patent. No nasal discharge, no septal abnormalities noted. Tympanic membranes are normal and external auditory canals are clear. Oropharynx with no redness, swelling, or masses, exudates, or evidence of obstruction, uvula midline. Mucous membranes moist. Neck: Trachea midline, no thyromegaly or masses palpated, and no cervical lymphadenopathy. Supple, full range of motion without nuchal rigidity, or vertebral point tenderness. No Meningismus. Chest/axilla: Normal chest wall appearance and motion. Nontender with no deformity. No lesions are appreciated. Cardiovascular: Regular rate and rhythm with a normal S1 and S2. No gallops, murmurs, or rubs. Normal PMI, no JVD. No pulse deficits. Respiratory: Lungs have equal breath sounds bilaterally, clear to auscultation and percussion. No rales, rhonchi or wheezes noted. No increased work of breathing, no retractions or nasal flaring. Abdomen/GI: Soft, non-tender, with normal bowel sounds. No distension or tympany. No guarding or rebound. No evidence of tenderness throughout. Back: No spinal tenderness. No costovertebral tenderness. Full range of motion. Male : Normal genitalia with no discharge or lesions. Skin: Warm, dry with normal turgor. Normal color with no rashes, no lesions, and no evidence of cellulitis. MS/ Extremity: Pulses equal, no cyanosis. Neurovascular intact. Full, normal range of motion. Neuro: Awake and alert, GCS 15, oriented to person, place, time, and situation. Cranial nerves II-XII grossly intact. Motor strength 5/5 in all extremities. Sensory grossly intact. Cerebellar exam normal. Normal gait. Psych: Awake, alert, with orientation to person, place and time. Behavior, mood, and affect are within normal limits. 21:07 ECG was reviewed by the Attending Physician. 21:09 ECG was reviewed by the Attending Physician. [facility] Vital Signs: 19:59 BP 125 / 68; Pulse 82; Resp 14; Temp 98; Pulse Ox 100% on R/A; Weight 145.15 kg; Height pf1 6 ft. 1 in. ; Pain 6/10; 21:00 BP 114 / 77; Pulse 91; Resp 13 S; Pulse Ox 100% on R/A; jw7 22:45 BP 133 / 64; Pulse 86; Resp 18 S; Pulse Ox 95% on R/A; cm10 19:59 Body Mass Index 42.22 (145.15 kg, 185.42 cm) pf1 19:59 Pain Scale: Adult pf1 MDM: 20:02 Patient medically screened. mindy 21:09 Antibiotic administration: Not indicated. Differential diagnosis: Anemia Anxiety mindy Reaction Bronchitis abnormal EKG, acute myocardial infarction, acute pericarditis, chest wall pain, Cholelithiasis costochondritis, gastritis, gastroesophageal reflux disease (GERD), pancreatitis, peptic ulcer disease, pneumonia, pneumothorax, pulmonary embolus, stable angina, unstable angina, Myocardial Infarction Pneumothorax pulmonary edema, Pulmonary Embolism reactive airway disease, Unstable Angina. HEART Score: History: Moderately Suspicious (1), ECG: Non specific repolarization disturbance / LBTB / PM (1), Age: > 45 and < 65 years (1), Risk Factors: > or = 3 Risk factors for atherosclerotic disease (2), [Hypercholesterolemia] [Hypertension] [+ Family HX] Troponin: < or = 1 x Normal Limit (0). The patient was given aspirin in the Emergency Department. LIT Risk Score: 1 - Three or more CAD risk factors, TOTAL SCORE = 1. Immunization status: Influenza vaccine: within last 5 years. Data reviewed: vital signs, nurses notes, lab test result(s), EKG, radiologic studies, CT scan, doppler, plain films. Consideration of Admission/Observation Patient was admitted/placed on observation. Escalation of care including admission/observation considered. I considered the following discharge prescriptions or medication management in the emergency department Medications were administered in the Emergency Department. See MAR. Independent interpretation of the following test(s) in the Emergency Department EKG: See my EKG interpretation above. Test considered but Not performed: Ultrasound NO 2 D ECHO. Historians other than the Patient: Spouse/Significant Other: INFORMED. Care significantly affected by the following chronic conditions: Hypertension, Obesity, A FIB, ABLATION. Counseling: I had a detailed discussion with the patient and/or guardian regarding the historical points, exam findings, and any diagnostic results supporting the discharge/admit diagnosis, lab results, radiology results, the need for further work-up and treatment in the hospital. 12/13 20:01 Order name: Basic Metabolic Panel; Complete Time: 21:25 [facility] 12/13 20:01 Order name: CBC with Diff; Complete Time: 21:05 [facility] 12/13 20:01 Order name: LFT's; Complete Time: 21:25 [facility] 12/13 20:01 Order name: Magnesium; Complete Time: 21: [facility] 12/13 20:01 Order name: NT PRO-BNP; Complete Time: 21:25 [facility] 12/13 20:01 Order name: PT-INR; Complete Time: 21:05 [facility] 12/13 20:01 Order name: Troponin HS; Complete Time: 21:25 [facility] 12/13 20:01 Order name: Lipase; Complete Time: 21:25 [facility] 12/13 20:01 Order name: Urinalysis w/ reflexes; Complete Time: 22:08 [facility] 12/13 20:01 Order name: XRAY Chest (1 view); Complete Time: 21:42 [facility] 12/13 20:41 Order name: CT Chest For PE Angio; Complete Time: 22:15 [facility] 12/13 20:41 Order name: US Extremity Venous W Compression Adrian 12/13 20:01 Order name: EKG; Complete Time: 20:02 [facility] 12/13 20:02 Order name: EKG; Complete Time: 20:02 [facility] 12/13 20:01 Order name: Cardiac monitoring; Complete Time: 20:13 [facility] 12/13 20:01 Order name: EKG - Nurse/Tech; Complete Time: 20:13 [facility] 12/13 20:01 Order name: IV Saline Lock; Complete Time: 20:33 [facility] 12/13 20:01 Order name: Labs collected and sent; Complete Time: : [facility] 12/13 20:01 Order name: O2 Per Protocol; Complete Time: 20: [facility] 12/13 20:01 Order name: O2 Sat Monitoring; Complete Time: 20: [facility] 12/13 20:02 Order name: EKG - Nurse/Tech; Complete Time: 20:33 [facility] EC:07 Rate is 79 beats/min. Rhythm is regular. QRS [place] is Normal. [place] interval is normal. QRS mindy interval is normal. QT interval is normal. No Q waves. T waves are Normal. No ST changes noted. Clinical impression: NSR w/ Non-specific ST/T Changes and No evidence of ischemia. Interpreted by me. Reviewed by me. 21:09 Rate is 80 beats/min. Rhythm is regular. QRS [place] is Normal. [place] interval is normal. QRS mindy interval is normal. QT interval is normal. No Q waves. T waves are Normal. No ST changes noted. Clinical impression: NSR w/ Non-specific ST/T Changes and No evidence of ischemia. Interpreted by me. Reviewed by me. Administered Medications: 21:11 Drug: morphine IVP or IV 4 mg IVP once over 4 mins Route: IVP; Infused Over: 4 mins; jw7 Site: right antecubital; 22:35 Follow up: Response: No adverse reaction cm10 21:11 Drug: Ondansetron IVP 4 mg IVP once; over 2 minutes Route: IVP; Site: right antecubital;jw7 22:35 Follow up: Response: No adverse reaction cm10 21:11 Drug: Enoxaparin Sub-Q 100 mg Sub-Q once Route: Sub-Q; Site: abdomen; jw7 22:35 Follow up: Response: No adverse reaction cm10 21:12 Drug: Aspirin PO Chewable Tablet 324 mg PO once; 81 mg tablets x 4 Route: PO; jw7 21:12 Drug: Famotidine IVP 20 mg IVP once; dilute with 10 mL 0.9% NaCl; give over 2 minutes jw7 Route: IVP; Site: right antecubital; 22:35 Follow up: Response: No adverse reaction cm10 Disposition Summary: 12/13/22 21:13 Hospitalization Ordered Notes: Hospitalization Status: Observation [facility] Provider: Ilya Velasco cha Location: Telemetry/MedSurg (observation) mindy Condition: Stable mindy Problem: new mindy Symptoms: have improved mindy Bed/Room Type: Standard [facility] Room Assignment: 231(12/13/22 22:25) cg Diagnosis - Chest pain on breathing mindy - Obesity, unspecified mindy - Dyspnea mindy Forms: - Medication Reconciliation Form mindy - SBAR form mindy - Leadership Thank You Letter mindy Signatures: Dispatcher [employer] Manish Rdz MD MD cha Attema, Lee, RISK REDUCTION COUNSELOR-C RISK REDUCTION COUNSELOR-Cla1 Gita Haji, RN RN cg Jennifer Grimes RN RN jw7 Amy Dickson RN RN pf1 Sanaz Lee RN cm10 Corrections: (The following items were deleted from the chart) 22:25 21:13 mindy cg
--- NOTE | 2022-12-13 21:32 | RAD REPORT ---
EXAM DESCRIPTION: RADChest Single View12/13/2022 8:49 pm CLINICAL HISTORY: CHEST PAIN COMPARISON: Chest Pa And Lat (2 Views) dated 11/01/2022; Chest Pa And Lat (2 Views) dated 03/22/2021; C hest Single View dated 11/27/2016 TECHNIQUE: Portable AP view of the chest. FINDINGS: The lungs are clear. No pneumothorax or effusion. The cardiomediastinal contours are unre markable. IMPRESSION: No acute cardiopulmonary process.
[2022-12-13 21:48] LABS: Specific Gravity 1.021 (1.005-1.030); Urine Bilirubin NEGATIVE (Negative); Urine Blood Negative (Negative); Urine Clarity Clear (Clear); Urine Color Yellow (Yellow); Urine Glucose NEGATIVE (Negative); Urine Protein NEGATIVE (Negative); Urine Urobilinogen 1+ (Normal)
--- NOTE | 2022-12-13 22:13 | RAD REPORT ---
EXAM DESCRIPTION: CT - Chest For Pe Angio - 12/13/2022 9:45 pm CLINICAL HISTORY: CHEST PAIN COMPARISON: Chest Single View dated 12/13/2022; Chest Pa And Lat (2 Views) dated 11/01/2022 TECHNIQUE: Thin axial CT images of the chest were obtained following administration of 100 mL Isovue 300 IV contrast. Multiplanar reconstructions, and maximum intensity projection reconstructions were generated and reviewed. Exam utilizes a protocol for optimal evaluation of pulmonary arterial tree. All CT scans are performed using dose optimization technique as appropriate and may include automated exposure control or mA/KV adjustment according to patient size. FINDINGS: Dense venous contrast results in streak artifact which somewhat limits evaluation. Pulmona ry arteries are normal. No emboli or other suspicious finding. No acute or significant aorta findings . Bulky left thyroid lobe containing an ill-defined large nodule measuring 3.7 x 3.3 cm with some retro sternal extension. No mass or infiltrate in the lung parenchyma. Slightly decreased inspiratory effort with dependent at electatic changes. No pleural thickening or pleural effusion. No pneumothorax. No abnormal mediastinal or hilar masses or lymphadenopathy seen. No chest wall mass or abnormal axill iary lymphadenopathy. Sequelae of prior gastric bypass. IMPRESSION: No evidence of acute central pulmonary emboli allowing for limitation mentioned above. No other acute pulmonary process. Bulky left thyroid lobe containing an ill-defined large nodule measuring up to 3.7 centimeter. This c an be further evaluated on dedicated up patient thyroid ultrasound if not previously performed.
--- NOTE | 2022-12-13 22:27 | P.HP ---
Certification for Inpatient Patient admitted to: Observation With expected LOS: <2 Midnights Patient will require the following post-hospital care: None Practitioner: I am a practitioner with admitting privileges, knowledge of patient current condition, hospital course, and medical plan of care. Services: Services provided to patient in accordance with Admission requirements found in Title 42 Section 412.3 of the Code of Federal Regulations Patient History Date of Service: 12/13/22 Reason for admission: Chest pain History of Present Illness: 52-year-old male with history of atrial fibrillation status post ablation, hypertension presents emergency department with chief complaint of chest pain. He reports chest pain over the course of last 24 hours started in the morning described as dull/aching nonradiating with no other associated signs or symptoms. Mildly exacerbated with deep breaths or leaning forward, not necessarily exacerbated with exertion. Last tress test approximately 1 to 2 years ago, had a heart catheterization 5 to 7 years ago before he had his ablation for atrial fibrillation. His initial high-sensitivity troponin is neg ative, EKG without STEMI criteria. CT PE protocol also negative for acute findings does note a thyroid nodule which patient follows with his PCP about. Patient provided with results from CT, will obtain thyroid panel recommend follow-up with PCP. Allergies No Known Allergies Allergy (Verified 11/02/22 06:53) Home Medications: Losartan Potassium 1 tab PO DAILY 03/22/21 Metoprolol Succinate [Toprol Xl*] 1 tab PO DAILY 03/22/21 Aspirin [Aspirin Regimen] 1 tab PO DAILY 11/01/22 - Past Medical/Surgical History Diabetic: No -: a fib -: htn -: hypothyroid -: sleep apnea -: right knee arthroscopy -: Ablation -: Gastric sleeve Psychosocial/ Personal History: Lives at home with his family - Social History Smoking Status: Never smoker Alcohol use: Yes CD- Drugs: No Caffeine use: Yes Place of Residence: Home Review of Systems 10-point ROS is otherwise unremarkable Cardiovascular: Chest Pain Physical Examination - Physical Exam General: Alert, In no apparent distress, Oriented x3 HEENT: Atraumatic, PERRLA, Mucous membr. moist/pink, EOMI, Sclerae nonicteric Neck: Supple, 2+ carotid pulse no bruit, No LAD, Without JVD or thyroid abnormality Respiratory: Clear to auscultation bilaterally, Normal air movement Cardiovascular: Regular rate/rhythm, Normal S1 S2 Gastrointestinal: Normal bowel sounds, No tenderness Musculoskeletal: No tenderness Integumentary: No rashes Neurological: Normal gait, Normal speech, Normal strength at 5/5 x4 extr, Normal tone, Normal affect Lymphatics: No axilla or inguinal lymphadenopathy - Studies Laboratory Data (last 24 hrs) 12/13/22 12/13/22 12/13/22 20:22 20:22 20:22 WBC 7.20 Hgb 14.6 Hct 43.0 Plt Count 250 PT 11.2 INR 1.02 Sodium 140 Potassium 4.0 BUN 21 H Creatinine 1.26 Glucose 106 Magnesium 2.3 Total Bilirubin 0.7 AST 15 ALT 30 Alkaline Phosphatase 63 Lipase 31 Assessment and Plan - Plan Assessment: Chest pain rule out ACS Hypertension History of atrial fibrillation status post ablation Thyroid nodule Plan: Chest pain rule out ACS Trend troponin, monitor on telemetry, cardiology consult. Aspirin, statin, beta-trina, as needed pain medications. Hypertension Continue metoprolol History of atrial fibrillation status post ablation Continue daily aspirin, currently in sinus rhythm. Thyroid nodule Discussed with patient CT findings, has known enlarged thyroid. We will check thyroid function with morning labs, recommend further outpatient evaluation. DVT PPX: Lovenox Code status: Full Discharge Plan: Home Plan to discharge in: 24 Hours - Advance Directives Does patient have a Living Will: No Does patient have a Durable POA for Healthcare: No - Code Status/Comfort Care Code Status Assessed: Yes (Full code) Critical Care: No Time Spent Managing Pts Care (In Minutes): 55
--- NOTE | 2022-12-13 22:28 | RAD REPORT ---
EXAM DESCRIPTION: US - Extrem Venous W Compress Adrian - 12/13/2022 10:07 pm CLINICAL HISTORY: Pain COMPARISON: None. TECHNIQUE: Real-time sonographic evaluation of the bilateral lower extremity deep venous systems was performed. FINDINGS: Normal compressibility, flow augmentation, phasic flow and spontaneous flow is identified in both the left and right lower extremity deep venous systems. No intraluminal filling defects seen. IMPRESSION: No DVT in either lower extremity.
[2022-12-13] MEDS ORDERED: ONDANSETRON 4 MG/2 ML VIAL IV PRN (22:36)
[2022-12-13 23:25] VITALS: BMI 42.2
[2022-12-14 03:17] LABS: Absolute Lymphocytes (CBC) 1.6 K/uL (0.7-4.9); Hematocrit 41.6 % (39.6-49.0); Lymphocytes % 14.2 % (15.3-44.8); MCV 88.6 fL (80-100); MPV 7.9 fL (7.6-11.3); Platelets 216 thou/uL (152-406); RBC Red Blood Cell Count 4.69 M/uL (4.33-5.43)
[2022-12-14 03:37] LABS: Potassium 3.8 mEq/L (3.5-5.1); Troponin High Sensitivity 5.5 pg/mL (<58.9)
[2022-12-14 03:38] LABS: Thyroid Stimulating Hormone 4.59 uIU/mL (0.358-3.740)
[2022-12-14] MEDS: MORPHINE 2 MG/ML SYR IV PRN ×3 (03:38→10:30)
[2022-12-14] MEDS ORDERED: MAGNESIUM HYDROXIDE 8% 30 ML PO ONE ×2 (03:55→21:35)
[2022-12-14] MEDS ORDERED: MORPHINE 2 MG/ML SYR IV ONE (04:58)
[2022-12-14] MEDS ORDERED: HEPARIN/D5W 25,000 UNIT/500 ML BAG IV SCH (05:00)
[2022-12-14] MEDS: NITROGLYCERIN 0.4 MG/TAB SL PRN ×3 (05:25→05:41)
[2022-12-14] MEDS ORDERED: NITROGLYCERIN 0.4 MG/TAB SL ONE (05:36)
[2022-12-14] MEDS ORDERED: METOPROLOL TAR 25 MG TAB PO SCH (06:00)
[2022-12-14] MEDS ORDERED: LIDOCAINE 1% 20 ML MDV ONE (06:49)
[2022-12-14] MEDS ORDERED: HEPA 1000U/500MLS 2,000 UNIT/1,000 ML BAG IV ONE (06:49)
[2022-12-14] MEDS ORDERED: MIDAZOLAM HCL 2 MG/2 ML INJ ONE (06:50)
[2022-12-14] MEDS ORDERED: FENTANYL CITR 100 MCG/2 ML ONE (06:50)
[2022-12-14] MEDS ORDERED: HEPARIN 5000 UNIT/ML 1 ML VIAL ONE (06:50)
[2022-12-14] MEDS ORDERED: NITROGLYCERIN/D5W 25 MG/250 ML BTL IV ONE (06:51)
[2022-12-14] MEDS ORDERED: HEPARIN 10,000 UNIT/10 ML VIAL IV ONE (06:51)
[2022-12-14] MEDS ORDERED: VERAPAMIL HCL 10 MG/4 ML VIAL IV ONE (06:51)
[2022-12-14] MEDS ORDERED: NA CHLORIDE 0.9% 500 ML ONE (07:07)
[2022-12-14] MEDS ORDERED: INFLUENZA VACCINE (for 6+ mo) 0.5 ML DOSE IMVAC ONE (08:00)
--- NOTE | 2022-12-14 08:27 | OP ---
Date of Procedure: 12/14/2022 Surgeon: DEENA PENA Procedures Performed: 1.Selective coronary angiogram. 2.Left heart catheterization. Indication: Unstable angina. Access: Right radial artery 6-Uzbek, closed with TR band. Complications: None. Bleeding: Less than 20 mL. Sedation: None due to low blood pressure. Description Of Procedure: After risks, benefits, and alternatives were explained, patient agreed to procedure and signed informed consent. Patient was brought into the cardiac catheterization laborato , prepped and draped in the usual sterile fashion. Then I accessed right radial artery using pedia tric micropuncture kit and placed a 6-Uzbek Slender sheath and took 5-Uzbek [place] 4 catheter over t he J-wire, engaged the RCA, and took standard views, and the catheter was pushed over the wire into t he LV, measured the LVEDP. Pullback did not record any gradient and then exchanged for 6-Uzbek JL3. 5 guide catheter, engaged the left main and took standard views and then removed the catheter and she ath, placed TR band with good hemostasis. Findings: 1.Left main; large and normal. 2.LAD, moderate size vessel, normal proximal mid segment luminal irregularity distally. Normal diag onal branches. 3.Left circumflex; ostial 40%, and the rest of the circumflex is normal and it is moderate-sized and non dominant. 4.RCA; very large and dominant and normal. 5.LVEDP is elevated at 22 mmHg. Conclusion: 1.Mild nonobstructive coronary artery disease. 2.Elevated LVEDP. Recommendations: Search for other causes of chest pain including acid reflux. SR/MODL Voice ID: [id number] Report ID: [id number]
[2022-12-14] MEDS ORDERED: ENOXAPARIN 40 MG/0.4 ML SQ SCH (09:00)
[2022-12-14] MEDS: ASPIRIN EC 81 MG TAB PO SCH (09:00)
--- NOTE | 2022-12-14 09:12 | CON ---
Date of Consultation: 12/14/2022 Reason For Consultation: Chest pain with EKG changes. History Of Present Illness: This is a 52-year-old male with history of hypertension, atrial fibrilla tion status post ablation in the past, hypothyroidism, presented to the emergency room with left-side d chest pain, radiates to the left upper extremity, and initially thought it might be indigestion. H e took some antacid, it helped a little bit, and then the pain came back, so presented to the emergen cy room. In the hospital, his troponins were negative. An EKG was normal and then around 4 o'clock in the morning, he started having severe crushing chest pain, retrosternal, radiates to the neck and left upper extremity and EKG was done and showed significant changes with T-wave inversion in inferio r leads that was not present on the first EKG. He was rating the pain 10/10. The patient was kept n .p.o. for coronary angiogram this morning. Past Medical History: As outlined above in the HPI. Medications: Refer reconciliation sheet for detailed list. Allergies: NO KNOWN DRUG ALLERGIES. Family History: No premature coronary artery disease or cancer. Social History: Does not smoke or drink. Does not use any drugs. Review of Systems: All systems reviewed and they were negative except as mentioned in the HPI. Physical Examination: Vital Signs: Reviewed. Head and Neck: Pupils are equal, reactive to light. Intact eye movements. No JVD. No cervical lym phadenopathy. Neck is supple. Thyroid is not enlarged. Lungs: Clear to auscultation bilaterally. No rhonchi, wheezing, or crackles. No accessory muscle u se. Heart: Regular rate and rhythm. No extra sounds. Abdomen: Soft, nontender. Bowel sounds positive. No organomegaly. No masses or hernia. No rigidi ty or rebound. Extremities: No edema, clubbing, cyanosis. Intact pulses. Skin: No rash. Neurologic: Alert, awake, oriented x3. No focal deficits appreciated. Investigations: Troponins are negative. BUN is 22, creatinine 1.08. Assessment/recommendation: 1.Unstable angina. The pain is becoming more frequent with significant EKG changes, suggestive of a cute coronary syndrome. I will take the patient for coronary angiogram this morning and PCI as indic ated. Please obtain an echo and continue aspirin. 2.Atrial fibrillation is in sinus, status post ablation. Continue home medications. 3.Hypertension. Blood pressure is controlled. SR/MODL Voice ID: [id number] Report ID: [id number]
--- NOTE | 2022-12-14 12:28 | P.PN ---
Subjective Date of Service: 12/14/22 Chief Complaint: Chest pain He underwent a left heart catheterization this morning, which revealed nonobstructive coronary artery disease. He reports significant chest pain that began yesterday evening. He states that the pain is worse with lying flat. 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 He denies any palpitations or shortness of breath. Review of Systems 10-point ROS is otherwise unremarkable Cardiovascular: Chest Pain Physical Examination - Vital Signs Temperature: 97.7 F Blood Pressure: 109/54 Pulse: 101 Respirations: 20 Pulse Ox (%): 91 - Physical Exam General: Alert, In no apparent distress, Oriented x3 HEENT: Atraumatic, Mucous membr. moist/pink, Sclerae nonicteric Neck: JVD not distended, Thyromegaly Respiratory: Clear to auscultation bilaterally, Normal air movement Cardiovascular: No edema, Regular rate/rhythm, Normal S1 S2 Gastrointestinal: Normal bowel sounds, Soft and benign, Non-distended, No tenderness, No rebound, No guarding Musculoskeletal: No clubbing Integumentary: No rashes Neurological: Normal speech, Normal affect - Studies Laboratory Data (last 24 hrs) 12/14/22 12/14/22 12/14/22 05:33 02:32 02:32 WBC 11.50 H Hgb 14.5 Hct 41.6 Plt Count 216 PT INR APTT 43.3 H Sodium 138 Potassium 3.8 BUN 22 H Creatinine 1.08 Glucose 103 Magnesium Total Bilirubin AST ALT Alkaline Phosphatase Triglycerides 92 Cholesterol 161 HDL Cholesterol 47 Cholesterol/HDL Ratio 3.43 Lipase 12/13/22 12/13/22 12/13/22 20:22 20:22 20:22 WBC 7.20 Hgb 14.6 Hct 43.0 Plt Count 250 PT 11.2 INR 1.02 APTT Sodium 140 Potassium 4.0 BUN 21 H Creatinine 1.26 Glucose 106 Magnesium 2.3 Total Bilirubin 0.7 AST 15 ALT 30 Alkaline Phosphatase 63 Triglycerides Cholesterol HDL Cholesterol Cholesterol/HDL Ratio Lipase 31 Assessment And Plan - Plan # Concern for Unstable Angina # Non-obstructive Coronary Artery Disease # Hypertension - Evaluation thus far: - EKG: borderline EKG changes, trend - Serial troponin:5.1 -> 5.6 -> 5.5 -> 4.5 -> 6.4 - Ordered transthoracic echocardiogram - Chest x-ray = "no acute cardiopulmonary process." - CT chest angiogram = "no evidence of acute central pulmonary emboli allowing for limitation mentioned above. No other acute pulmonary process. Bulky left thyroid lobe containing an ill-defined large nodule measuring up to 3.7 centimeter. This can be further evaluated on dedicated up patient thyroid ultrasound if not previously performed" - Management plan: - Consult Cardiology and spoke with Dr. Laird - recommendations appreciated - S/P LHC this morning, revealing non-obstructive coronary artery disease - Continue home aspirin, atorvastatin, losartan, metoprolol # Large Ill-Defined Thyroid Nodule (3.7 cm x 3.3 cm) with Retrosternal Extension - TSH 4.59, Free T4 0.84 - Ordered thyroid ultrasound - Consulted Otorhinolaryngology and notified Dr. 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
--- NOTE | 2022-12-14 13:59 | RAD REPORT ---
EXAM DESCRIPTION: CT - Abdomen Pelvis Wo Contrast - 12/14/2022 1:18 pm CLINICAL HISTORY: abdominal discomfort COMPARISON: Chest For Pe Angio dated 12/13/2022 TECHNIQUE: Thin cut axial CT imaging of the abdomen and pelvis was performed without IV contrast. Mu ltiplanar reformats were generated and reviewed. All CT scans are performed using dose optimization technique as appropriate and may include automated exposure control or mA/KV adjustment according to patient size. FINDINGS: Patchy bibasilar airspace opacities, with trace bilateral effusions. Superimposed pneumoni a cannot be entirely excluded. . The liver, spleen, adrenal glands, and pancreas show no suspicious findings. Punctate foci of calcifi cation, suggestive of sequelae of remote granulomatous infection. Gallbladder and biliary tree are al so without suspicious finding. Spurious excretion of contrast in the gallbladder lumen, and some residual contrast opacifies the uri nary tract bilaterally and the bladder limiting evaluation for calculi. Symmetric renal contour, without suspicious parenchymal findings within limits of noncontrast techniq ue. No evidence of hydroureteronephrosis. Sequelae of gastric bypass surgery. No dilated bowel loops or bowel wall thickening. No free air, eli e fluid or inflammatory stranding. Appendix is unremarkable. Small left inguinal hernia containing tr olivier fluid. . No suspicious mass or bulky lymphadenopathy. The urinary bladder is without significant finding. No suspicious bony findings. Grade 1 spondylolisthesis at L5-S1. IMPRESSION: Bibasilar patchy airspace opacities with trace effusions. Superimposed pneumonia cannot be entirely excluded. No acute intra-abdominal process. No hydroureteronephrosis or evidence of radiopaque calculi, although some residual contrast along the urinary tracts partially limits evaluation.
--- NOTE | 2022-12-14 14:09 | EKG ---
Test Date: 2022-12-14 Test Time: 05:50:36 Liner Inserter: WOLF MEASUREMENT RESULTS: Intervals: Rate: 87 HI: 148 QRSD: 90 QT: 328 QTc: 394 [place]: P: 80 HI: 148 QRS: 79 T: -7 INTERPRETIVE STATEMENTS: Normal sinus rhythm ST elevation, consider lateral injury or acute infarct Abnormal ECG Compared to ECG 12/14/2022 04:41:52 No significant changes Electronically Signed On 12-14-22 14:09:14 CDT by Rajeev Liard
--- NOTE | 2022-12-14 14:10 | EKG ---
Test Date: 2022-12-14 Test Time: 04:41:52 Movement Therapist: WOLF MEASUREMENT RESULTS: Intervals: Rate: 85 MA: 150 QRSD: 98 QT: 340 QTc: 404 [place]: P: 79 MA: 150 QRS: 89 T: -12 INTERPRETIVE STATEMENTS: Normal sinus rhythm ST elevation, consider lateral injury or acute infarct Abnormal ECG Compared to ECG 12/13/2022 20:00:11 ST (T wave) deviation now present Myocardial infarct finding now present Electronically Signed On 12-14-22 14:09:22 CDT by Rajeev Laird
--- NOTE | 2022-12-14 14:12 | EKG ---
Test Date: 2022-12-13 Test Time: 19:58:17 Software Installation Engineer: RADHA MEASUREMENT RESULTS: Intervals: Rate: 79 ND: 146 QRSD: 88 QT: 336 QTc: 385 [place]: P: 63 ND: 146 QRS: 51 T: 29 INTERPRETIVE STATEMENTS: Normal sinus rhythm ST elevation, consider lateral injury or acute infarct Abnormal ECG Compared to ECG 11/01/2022 15:47:48 ST (T wave) deviation now present Myocardial infarct finding now present T-wave abnormality no longer present Possible ischemia no longer present Electronically Signed On 12-14-22 14:10:32 CDT by Rajeev Laird
--- NOTE | 2022-12-14 14:12 | EKG ---
Test Date: 2022-12-13 Test Time: 20:00:11 Art Tracer: RADHA MEASUREMENT RESULTS: Intervals: Rate: 80 OK: 150 QRSD: 92 QT: 336 QTc: 387 [place]: P: 76 OK: 150 QRS: 53 T: 24 INTERPRETIVE STATEMENTS: Normal sinus rhythm Normal ECG Compared to ECG 12/13/2022 19:58:17 ST (T wave) deviation no longer present Myocardial infarct finding no longer present Electronically Signed On 12-14-22 14:10:11 CDT by Rajeev Laird
[2022-12-14] MEDS: LOSARTAN POTASSIUM 50 MG TABLET PO SCH (14:47)
[2022-12-14] MEDS: PANTOPRAZOLE 40MG TABLET PO SCH ×2 (14:47→17:29)
[2022-12-14] MEDS ORDERED: ATORVASTATIN 40 MG TAB PO SCH (21:00)
[2022-12-14 21:01] VITALS: O2SAT 95
[2022-12-14] MEDS ORDERED: FAMOTIDINE 20 MG TAB PO ONE (21:40)
--- NOTE | 2022-12-14 22:20 | RAD REPORT ---
EXAM DESCRIPTION: US - Thyroid Para Parotid Gland - 12/14/2022 2:58 pm CLINICAL HISTORY: thyroid mass COMPARISON: Chest For Pe Angio dated 12/13/2022 TECHNIQUE: Sonographic grayscale and color flow images of the thyroid gland were obtained. FINDINGS: The isthmus of the thyroid measures 1.3 cm in thickness. The right lobe of the thyroid measures 5.7 x 3.3 x 2.3 cm. The left lobe of the thyroid measures 5.8 x 3.6 x 3.3 cm. Heterogeneous appearance of the thyroid parenchyma diffusely. Nodules: Isthmus: None Right Lobe: Solid ovoid posterior midpole isoechoic fairly well-circumscribed 2.1 x 2.0 x 1.5 cm mass without cony cifications, TR 3 category. Left Lobe: Isoechoic mixed cystic and solid mass involving the lower to midpole measuring 2.9 x 3.6 x 2.1 cm, wi thout appreciable calcifications, TR 2 category. IMPRESSION: TR 2 and 3 category bilateral large thyroid nodules as above. Bulky thyroid gland with h eterogeneous appearance of the parenchyma diffusely, may suggest multinodular goiter. Follow-up ultra sound is recommended in 12 months.
[2022-12-15 03:38] LABS: Absolute Lymphocytes (CBC) 1.8 K/uL (0.7-4.9); Hematocrit 38.6 % (39.6-49.0); Lymphocytes % 22.6 % (15.3-44.8); MCV 88.5 fL (80-100); MPV 7.9 fL (7.6-11.3); Platelets 216 thou/uL (152-406); RBC Red Blood Cell Count 4.36 M/uL (4.33-5.43)
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
[2022-12-15 08:44] LABS: Hematocrit 39.8 % (39.6-49.0)
[2022-12-15] MEDS ORDERED: ASPIRIN EC 81 MG TAB PO SCH (09:00)
[2022-12-15] MEDS ORDERED: METOPROLOL XL 50 MG TAB PO SCH (09:00)
--- NOTE | 2022-12-15 09:22 | RAD REPORT ---
EXAM DESCRIPTION: Shwethat Pa And Lat (2 Views)12/15/2022 8:46 am CLINICAL HISTORY: Cough COMPARISON: December 14, 2022 FINDINGS: Mild bibasilar lung opacities. Small left pleural effusion. Heart is borderline enlarged IMPRESSION: Mild bibasilar lung opacities without significant change could represent pneumonia or a telectasis. Small left pleural effusion
[2022-12-15] MEDS: ASPIRIN EC 81 MG TAB PO SCH (09:34)
[2022-12-15] MEDS: PANTOPRAZOLE 40MG TABLET PO SCH (09:34)
[2022-12-15] MEDS: LOSARTAN POTASSIUM 50 MG TABLET PO SCH (09:34)
[2022-12-15] MEDS ORDERED: AZITHROMYCIN 250 MG TAB PO ONE (10:55)
--- NOTE | 2022-12-15 11:02 | P.DS ---
Admission Date: 12/14/22 Discharge Date: 12/15/22 Disposition: ROUTINE DISCHARGE Discharge Condition: GOOD Reason for Admission: Chest pain Consultations: 1. Cardiology 2. Otorhinolaryngology Procedures: - 12/14/2022 - 1. Selective coronary angiogram. 2. Left heart catheterization. Hospital Course: DIAGNOSES: # Chest Pain - suspected due to Severe Gastroesophageal Reflux Disease # Suspect Atypical Pneumonia # Non-Obstructive Coronary Artery Disease # Large Ill-Defined Thyroid Nodule (3.7 cm x 3.3 cm) with Retrosternal Extension # Subclinical Hypothyroidism # History of Atrial Fibrillation s/p Ablation # Hypertension # History of Gastric Sleeve (2021) # Small Left Inguinal Hernia # Grade 1 Spondylolisthesis (L5-S1) HOSPITAL COURSE: Mr. Laurent Duffy is a pleasant 52 year old male with a past medical history significant for atrial fibrillation s/p ablation, hypertension, and a gastric sleeve procedure who was admitted to the [facility] on for chest pain. He was admitted to the Medicine service. Upon further evaluation, his EKG demonstrated borderline changes. His troponin trend was 5.1 -> 5.6 -> 5.5 -> 4.5 -> 6.4. His initial chest x-ray revealed, "no acute cardiopulmonary process." His CT chest angiogram revealed, "no evidence of acute central pulmonary emboli allowing for limitation mentioned above. No other acute pulmonary process. Bulky left thyroid lobe containing an ill-defined large nodule measuring up to 3.7 centimeter. This can be further evaluated on dedicated up patient thyroid ultrasound if not previously performed." Cardiology was consulted and he was evaluated by Dr. Laird. He underwent a left heart catheterization, which was notable for nonobstructive coronary artery disease. His echocardiogram has not been formally reported, but per Dr. Laird, it revealed a normal left ventricular ejection fraction (60-65 %), normal wall motion, normal diastolic function, and mild tricuspid regurgitation. From a cardiac standpoint, Dr. Laird has cleared him for discharge. For further evaluation, a CT abdomen/pelvis was obtained, and revealed, "bibasilar patchy airspace opacities with trace effusions. Superimposed pneumonia cannot be entirely excluded. No acute intra-abdominal process. No hydroureteronephrosis or evidence of radiopaque calculi, although some residual contrast along the urinary tracts partially limits evaluation." A follow-up chest x-ray revealed, "mild bibasilar lung opacities without significant change could represent pneumonia or atelectasis. Small left pleural effusion." Throughout his stay, he did not demonstrate any fevers, chills, cough, or shortness of breath to clinically suggest pneumonia; however, it would be difficult to exclude a "walking"/atypical pneumonia. He was empirically started on azithromycin, and advised to repeat his chest x-ray in 2-3 weeks with his PCP to ensure resolution of the pulmonary opacities. He was also given an incentive spirometer and educated on how to use this. In regards to his thyroid nodule, his laboratory studies were notable for subclinical hypothyroidism. His thyroid ultrasound revealed, "TR 2 and 3 category bilateral large thyroid nodules as above. Bulky thyroid gland with heterogeneous appearance of the parenchyma diffusely, may suggest multinodular goiter. Follow-up ultrasound is recommended in 12 months." Otorhinolaryngology was consulted and he was evaluated by Dr. Finnegan. She has cleared him for discharge with outpatient follow-up for a thyroid nodule biopsy. It was felt that his symptoms were likely secondary to gastroesophageal reflux disease in the setting of a prior gastric sleeve. His case was reviewed with Dr. Turcios (Gastroenterology), who recommended pantoprazole, sucralfate, and an outpatient esophagogastroduodenoscopy. On 12/15/2022, he was seen on morning rounds and deemed medically stable for discharge. He was discharged with instructions to schedule follow-up appointments with his PCP (Dr. Flor), with Gastroenterology (Dr. Turcios), with Cardiology (Dr. Laird) and with Otorhinolaryngology (Dr. Finnegan). He was provided prescriptions for pantoprazole, sucralfate, and azithromycin. He and his were given the opportunity to ask questions and reported no further questions. Furthermore, all questions were answered to the best of my ability. A copy of this discharge summary will be sent to the above providers to facilitate continuity of care. Today, I personally spent 35 minutes on his case, of which greater than 50% of the time was spent in patient education, counseling, and coordination of care as described above. - Physical Exam General: Alert, In no apparent distress, Oriented x3 HEENT: Atraumatic, Mucous membr. moist/pink, Sclerae nonicteric Neck: JVD not distended, Thyromegaly Respiratory: Clear to auscultation bilaterally, Normal air movement Cardiovascular: No edema, Regular rate/rhythm, No murmurs Gastrointestinal: Normal bowel sounds, Soft, Non-distended, No tenderness Musculoskeletal: Right radial catheterization site is clean, dry, and intact, without evidence of bruising or hematoma. Strong pulse Integumentary: No rashes Neurological: Normal speech, Normal affect Vital Signs/Physical Exam: Temp Pulse Resp BP Pulse Ox 97.0 F 84 16 115/55 L 94 12/15/22 08:00 12/15/22 08:00 12/15/22 08:00 12/15/22 08:00 12/15/22 08:00 Laboratory Data at Discharge: WBC 7.90 thou/uL (4.3-10.9) 12/15/22 03:10 Hgb 13.9 g/dL (13.6-17.9) 12/15/22 08:32 Hct 39.8 % (39.6-49.0) 12/15/22 08:32 Plt Count 216 thou/uL (152-406) 12/15/22 03:10 PT 11.2 SECONDS (9.5-12.5) 12/13/22 20:22 INR 1.02 12/13/22 20:22 APTT 43.3 SECONDS (24.3-36.9) H 12/14/22 05:33 Sodium 138 mEq/L (136-145) 12/14/22 02:32 Potassium 3.8 mEq/L (3.5-5.1) 12/14/22 02:32 BUN 22 mg/dL (7-18) H 12/14/22 02:32 Creatinine 1.08 mg/dL (0.70-1.30) 12/14/22 02:32 Glucose 103 mg/dL (74-106) 12/14/22 02:32 Magnesium 2.3 mg/dL (1.6-2.4) 12/13/22 20:22 Total Bilirubin 0.7 mg/dL (0.2-1.0) 12/13/22 20:22 AST 15 U/L (15-37) 12/13/22 20:22 ALT 30 U/L (16-61) 12/13/22 20:22 Alkaline Phosphatase 63 U/L (45-117) 12/13/22 20:22 Triglycerides 92 mg/dL (<150) 12/14/22 02:32 Cholesterol 161 mg/dL (<200) 12/14/22 02:32 HDL Cholesterol 47 mg/dL (40-60) 12/14/22 02:32 Cholesterol/HDL Ratio 3.43 12/14/22 02:32 Lipase 31 U/L (13-75) 12/13/22 20:22 Home Medications: Losartan Potassium 1 tab PO DAILY 03/22/21 Metoprolol Succinate [Toprol Xl*] 1 tab PO DAILY 03/22/21 Aspirin [Aspirin Regimen] 1 tab PO DAILY 11/01/22 Cyclobenzaprine [Flexeril*] 10 mg PO DAILY PRN 12/13/22 Menthol [Arctic Relief] 1 appl TOP BID PRN 12/13/22 Polyethylene Glycol 3350 [Miralax] 1 pkg PO DAILY 12/13/22 Azithromycin Tab [Zithromax*] 250 mg PO DAILY 4 Days #4 tab 12/15/22 Pantoprazole Sodium 40 mg PO BID #60 tab 12/15/22 Sucralfate [Carafate] 10 ml PO ACHS #1200 ml 12/15/22 New Medications: Sucralfate [Carafate] 10 ml PO ACHS #1200 ml Pantoprazole Sodium 40 mg PO BID #60 tab Azithromycin Tab [Zithromax*] 250 mg PO DAILY 4 Days #4 tab Physician Discharge Instructions: 1. Please call and schedule a follow-up appointment with your PCP (Dr. Flor) in 3-5 days - Your thyroid blood tests were slightly abnormal. Please have your PCP repeat your blood work at your upcoming visit - Please have your PCP repeat your chest x-ray in 2-3 weeks to make sure your pneumonia has fully healed - Your CT scan showed a small left sided groin hernia and mild degenerative disease on your lower back (L5-S1). Please discuss with PCP for further evaluation 2. Please call and schedule a follow-up appointment with Gastroenterology (Dr. Turcios) in 5-7 days - Please schedule an upper endoscopy with Dr. Turcios to further evaluate your gastric reflux. As we discussed, untreated reflux can lead to esophageal cancer 3. Please call and schedule a follow-up appointment with ENT (Dr. Finnegan) in 5- 7 days - Please schedule a thyroid biopsy with her as soon as possible 4. Please call and schedule a follow-up appointment with Cardiology (Dr. Laird) in 5-7 days - Please discuss the possibility of starting a blood thinner for your atrial fibrillation Medication changes: 1. Please take Pantoprazole 40 mg two times per day for two weeks, followed by once per day 2. Please take Sucralfate 1 g (10 mL) four times per day (three with meals and once before bedtime) 3. Please take Azithromycin 250 mg once per day - starting on 12/16/2022 - Please follow-up with your PCP for medication refills/adjustments Please return to the emergency department if symptoms worsen or fail to improve Please call [phone] if you have any questions regarding your hospital stay Diet: AHA Activity: Ad felix Followup: Maria Luisa Finnegan MD [ACTIVE - CAN ADMIT] - Ricki Turcios MD [OUTSIDE PHYSICIAN] - Rose Mary Flor DO [OUTSIDE PHYSICIAN] - Rajeev Laird MD [ACTIVE - CAN ADMIT] - Time spent managing pt's care (in minutes): 35
[2022-12-15] MEDS ORDERED: SUCRALFATE 1GM/10ML UCUP PO SCH (11:15)
[2022-12-15 12:00] VITALS: BP 118/56; TEMP 97.2
--- NOTE | 2022-12-16 14:38 | ECHO ---
HEIGHT: 6 ft 1 in WEIGHT: 320 lb 0 oz DATE OF STUDY: 12/14/[address]: Ilya Velasco MD 2-DIMENSIONAL: YES M.MODE: YES DOPPLER: YES COLOR FLOW: YES TDS: YES PORTABLE: YES DEFINITY: BUBBLE STUDY: DIAGNOSIS: CHEST PAIN CARDIAC HISTORY: CATHERIZATION: YES SURGERY: NO PROSTHETIC VALVE: NO PACEMAKER: NO MEASUREMENTS (cm) DIASTOLIC (NORMALS) SYSTOLIC (NORMALS) IVSd 1.0 (0.6-1.2) LA Diam 3.0 (1.9-4.0) LVEF 69% LVIDd 4.4 (3.5-5.7) LVIDs 2.7 (2.0-3.5) %FS 39% LVPWd 1.1 (0.6-1.2) Ao Diam 2.7 (2.0-3.7) 2 DIMENSIONAL ASSESSMENT: RIGHT ATRIUM: NORMAL LEFT ATRIUM: NORMAL RIGHT VENTRICLE: NORMAL LEFT VENTRICLE: NORMAL TRICUSPID VALVE: MILD TRICUSPID REGURGITATION MITRAL VALVE: NORMAL PULMONIC VALVE: NORMAL AORTIC VALVE: NORMAL PERICARDIAL EFFUSION: NONE AORTIC ROOT: NORMAL LEFT VENTRICULAR WALL MOTION: NORMAL DOPPLER/COLOR FLOW: MILD TRICUSPID REGURGITATION COMMENTS: 1. NORMAL LEFT VENTRICULAR EJECTION FRACTION 60-65% 2. NORMAL WALL MOTION 3. NORMAL DIASTOLIC FUNCTION 4. MILD TRICUSPID REGURGITATION TECHNOLOGIST: OLIVIER URBANO
== END 2022-12-15 14:35 | disposition home or self-care (01) | DRG 391 ==
LOC: ER 19:54 → 2ND 22:20 → OBSVTOIN 12-14 06:48
PROVIDERS: ADMIT Internal Medicine; ATTEND Internal Medicine
PROC: 4A023N7 Measurement of Cardiac Sampling and Pressure, Left Heart, Percutaneous Approach (ICD-10-PCS; principal; 2022-12-14)
PROC: B2111ZZ Fluoroscopy of Multiple Coronary Arteries using Low Osmolar Contrast (ICD-10-PCS; 2022-12-14)
DX: K21.9 Gastro-esophageal reflux disease without esophagitis (principal); J18.9 Pneumonia, unspecified organism; I25.110 Atherosclerotic heart disease of native coronary artery with unstable angina pectoris; Z68.41 Body mass index [BMI] 40.0-44.9, adult; I48.91 Unspecified atrial fibrillation; E04.9 Nontoxic goiter, unspecified; E66.9 Obesity, unspecified; I10 Essential (primary) hypertension; M43.10 Spondylolisthesis, site unspecified; E04.1 Nontoxic single thyroid nodule; K40.90 Unilateral inguinal hernia, without obstruction or gangrene, not specified as recurrent; Z79.82 Long term (current) use of aspirin; Z98.84 Bariatric surgery status; Z79.899 Other long term (current) drug therapy
CPT/HCPCS: 36415; 71045; 71046; 71275; 74176; 76536; 76937; 80048; 80061; 80076; 81003; 83690; 83735; 83880; 84439; 84443; 84484; 85014; 85018; 85025; 85610; 85730; 93005; 93306; 93458; 93970; 96372; 96374; 96375; 99285; C1893; G0378; J1644; J1650; J2001; J2250; J2270; J2405; J3010; J7040; Q9966; Q9967

== ENCOUNTER → 2022-12-26 | Day surgery (SDC) | payer BC ==
--- NOTE | 2022-12-26 13:54 | RAD REPORT ---
EXAM DESCRIPTION: US - Guided FNA Non Breast - 12/26/2022 11:43 am CLINICAL HISTORY: E04.1 2ND LESION COMPARISON: Guided FNA Non Breast dated 12/26/2022; Thyroid Para Parotid Gland dated 12/14/2022 FINDINGS: Preoperative diagnosis: Bilateral thyroid nodules. Post operative diagnosis: Same. Conscious Sedation: None Fluoroscopy time: None Contrast used: None Estimated blood loss: Minimal Specimens:As below The risks and benefits of the procedure were explained to the patient. Informed consent was obtained. Time-out procedure was performed. The anterior neck was prepped and draped in the usual sterile fash ion. 1% lidocaine was infiltrated into the subcutaneous tissues for local anesthesia. Real time ultrasound scanning of the right thyroid lobe demonstrated a hyperechoic ovoid deeply situa cristino inferior right lobe 2.2 cm nodule. Under ultrasound guidance, using multiple 25 gauge needle, 5 f ine needle aspiration/biopsy specimens were obtained of this lesion and sent to pathology for evaluat ion. Attention was then directed to the left thyroid lobe. Real-time ultrasound scanning demonstrated a he terogeneous mixed cystic and solid mid to lower pole dominant nodule measuring up to 4.3 cm. Under re al-time ultrasound guidance, using multiple 25 gauge needles, 5 fine needle aspiration/ biopsy specim ens were obtained of this lesion and sent to pathology for evaluation. Patient tolerated the procedure well. There were no complications. IMPRESSION: Successful ultrasound-guided fine-needle aspiration/ biopsy of bilateral thyroid nodules as above.
== END ==
LOC: FNA 09:26
PROVIDERS: ATTEND Otolaryngology
PROC: 0GBG3ZX Excision of Left Thyroid Gland Lobe, Percutaneous Approach, Diagnostic (ICD-10-PCS; principal; 2022-12-26)
PROC: 0GBH3ZX Excision of Right Thyroid Gland Lobe, Percutaneous Approach, Diagnostic (ICD-10-PCS; 2022-12-26)
DX: E04.1 Nontoxic single thyroid nodule (principal)
CPT/HCPCS: 88162